=== PATIENT | female | born 1975 | race Caucasian/White ===

== ENCOUNTER 2016-07-11 07:57 | Emergency (ER) | payer OTHER ==
[2016-07-11 08:00] VITALS: BP 135/64
--- NOTE | 2016-07-11 08:55 | RAD ---
INDICATION: Pain at the distal interphalangeal joint of the right middle finger after striking hand against door jam TECHNIQUE: 3 views of the right middle finger were obtained. FINDINGS: The bones are normal alignment. Joint spaces appear maintained. No fracture is seen. IMPRESSION: NO EVIDENCE FOR FRACTURE, IF THE PATIENT'S SYMPTOMS PERSIST RECOMMEND FOLLOW-UP IMAGING.
--- NOTE | 2016-07-11 13:38 | ED ---
Len Rasheed Auryana, scribed for Manan Arteaga MD on 07/11/16 at 0909 . Upper Extremity Pain - HPI Summary HPI Summary: 41 year old females presents with right middle finger pain starting this morning. She reports that as she was walking out of the door and hit the door frame with with finger. She has swelling and pain with movement but denies any other injuries. 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 She is right hand dominant. PMHx of arthritis unsure type. She denies any tobacco or alcohol use. 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, Still Present Timing: Constant Severity Initially: Mild Severity Currently: Mild Pain Location: Hand - right hand middle finger Aggravating Factor(s): Movement Associated Signs & Symptoms: Positive: Swelling Related History: Dominant Hand Right - Allergies/Home Medications Allergies/Adverse Reactions: Allergies Allergy/AdvReac Type Severity Reaction Status Date / Time Iodine Allergy Severe Swelling Verified 06/27/15 13:14 Of Face,Lips,& Throat Shellfish Allergy Allergy Severe Swelling Verified 06/27/15 13:14 Of Face,Lips,& Throat Aspirin Allergy Unknown Verified 06/27/15 13:14 Reaction Details Povidone Iodine Allergy Hives Verified 06/27/15 13:14 [From Betadine] PMH/Surg Hx/FS Hx/Imm Hx Endocrine/Hematology History: Reports: Hx Diabetes, Hx Anemia - HX OF WHEN Cardiovascular History: Reports: Hx Hypercholesterolemia Denies: Hx Myocardial Infarction - Present in EMR PMHx, but pt denies and report negative stress test. Respiratory History: Reports: Hx Chronic Obstructive Pulmonary Disease (COPD), Hx Sleep Apnea GI History: Reports: Hx Gastroesophageal Reflux Disease Musculoskeletal History: Reports: Hx Arthritis - BACK, Hx Back Problems Sensory History: Reports: Hx Cataracts - BILAT, Hx Contacts or Glasses - READING , Other Sensory Impairments - pressure behind right eye Denies: Hx Hearing Aid, Hx Hearing Problem Opthamlomology History: Reports: Hx Cataracts - BILAT, Hx Contacts or Glasses - READING, Other Sensory Impairments - pressure behind right eye Psychiatric History: Reports: Hx Anxiety - NO MEDS, Hx Depression - NO MEDS - Surgical History Surgery Procedure, Year, and Place: [place] [facility] [place] [facility] [place] [place] 07[place] [facility] LEFT EYE SCAR TISSUE REMOVAL 04/22 [facility] REPAIR RIGHT MACULAR HOLE 2012 Hx Anesthesia Reactions: No - Immunization History Date of Tetanus Vaccine: unsure Date of Influenza Vaccine: 2011 Infectious Disease History: No Infectious Disease History: Denies: Traveled Outside the [place] in Last 30 Days - Family History Known Family History: Positive: Diabetes Family History: Renal Failure, CVA, thyroid dz. - Social History Occupation: Unemployed Lives: With Family Alcohol Use: None Substance Use Type: Reports: None Substance Use Comment - Amount & Last Used: percocet Hx Tobacco Use: Yes Smoking Status (MU): Former Smoker Type: Cigarettes Have You Smoked in the Last Year: No Review of Systems Constitutional: Negative Negative: Fever Eyes: Negative ENT: Negative Cardiovascular: Negative Respiratory: Negative Gastrointestinal: Negative Genitourinary: Negative Positive: Myalgia - right hand middle finger pain , Edema - at site of injury Skin: Negative Neurological: Negative Psychological: Normal All Other Systems Reviewed And Are Negative: Yes Physical Exam - Summary Physical Exam Summary: The patient is well-nourished in no acute distress and in mild acute pain. The skin is warm and dry and skin color reflects adequate perfusion. HEENT: The head is normocephalic and atraumatic. The pupils are equal and reactive. The conjunctivae are clear and without drainage. Nares are patent and without drainage. Mouth reveals moist mucous membranes and the throat is without erythema and exudate. The external ears are intact. The ear canals are patent and without drainage. The tympanic membranes are intact. Neck is supple with full range of motion and non-tender. There are no carotid bruits. There is no neck vein distension. Respiratory: Chest is non-tender. Lungs are clear to auscultation and breath sounds are symmetrical and equal. Cardiovascular: Hear is regular rate and rhythm. There is no murmur or rub auscultated. There is no peripheral edema and pulses are symmetrical and equal. Abdomen: The abdomen is soft and non-tender. There are normal bowel sounds heard in all four quadrants and there is no organomegaly palpated. Musculoskeletal: There is good capillary refill. There is no peripheral edema or calf tenderness elicited. Pain and swelling at the DIP joint of the right hand. Good pulses. No skin break. Full ROM-no elbow and no shoulder pain Neurological: Patient is alert and oriented to person, place and time. The patient has symmetrical motor strength in all four extremities. Cranial nerves are grossly intact. Deep tendon reflexes are symmetrical and equal in all four extremities. Psychiatric: The patient has an appropriate affect and does not exhibit any anxiety or depression. Triage Information Reviewed: Yes Vital Signs On Initial Exam: Initial Vitals Temp Pulse Resp BP Pulse Ox 97.6 F 75 16 135/64 100 07/11/16 07:58 07/11/16 07:58 07/11/16 07:58 07/11/16 07:58 07/11/16 07:58 Vital Signs Reviewed: Yes Diagnostics - Vital Signs Vital Signs Temp Pulse Resp BP Pulse Ox 07/11/16 08:00 97.8 F 73 16 135/64 100 07/11/16 07:58 97.6 F 75 16 135/64 100 - Laboratory Lab Statement: Any lab studies that have been ordered have been reviewed, and results considered in the medical decision making process. - Radiology R HAND XR Xray Interpretation: No Acute Changes - IMPRESSION: NO EVIDENCE FOR FRACTURE, IF THE PATIENT'S SYMPTOMS PERSIST RECOMMEND FOLLOW-UP IMAGING. Radiology Interpretation Completed By: Radiologist Course/Dx - Course Assessment/Plan: 41 year old female presents with right middle finger pain s/p hitting finger on door frame while walking. Reports pain with movement and mild swelling. Finger XR- normal without any fractures. Will discharge home with PCP F/U. - Diagnoses Differential Diagnosis/HQI/PQRI: Positive: Contusion, Fracture (Closed) Provider Diagnoses: Contusion of middle finger Discharge - Discharge Plan Condition: Stable Disposition: HOME Patient Education Materials: Contusion in Adults (ED), RICE Therapy (ED) Referrals: Stephanie Umana, THERAPEUTIC STRATEGY LEAD [Primary Care Provider] - 2 Days The documentation as recorded by the Len moser Auryana accurately reflects the service I personally performed and the decisions made by , Manan Arteaga MD.
== END 2016-07-11 09:24 | disposition home or self-care (01) ==
LOC: ED 07:57
DX: S60.031A Contusion of right middle finger without damage to nail, initial encounter (principal); R60.0 Localized edema; Z87.891 Personal history of nicotine dependence; W22.8XXA Striking against or struck by other objects, initial encounter; Y93.9 Activity, unspecified; Y92.9 Unspecified place or not applicable
CPT/HCPCS: 73140; 99281

== ENCOUNTER 2017-03-21 11:46 | Emergency (ER) | payer OTHER ==
[2017-03-21 13:24] LABS: Urine Appearance Clear; Urine Blood Negative (Negative); Urine Color Yellow; Urine Ketones Negative (Negative); Urine Protein Negative (Negative); Urine Specific Gravity 1.019 (1.010-1.030); Urine Urobilinogen Negative (Negative)
[2017-03-21 14:25] VITALS: BP 124/70
--- NOTE | 2017-03-21 22:59 | ED ---
Laura Rasheed Julia, scribed for Yenny Palmer MD on 03/21/17 at 1432 . Abdominal Pain/Female - HPI Summary HPI Summary: This patient is a 41 year old F presenting to [facility] accompanied by her boyfriend with a chief complaint of worsening lower abdominal pain since . The patient rates the pain 7/10 in severity. Symptoms aggravated by nothing. Symptoms alleviated by nothing. Patient reports N/V/D and pressure back pain. Patient denies fever, ear ache, sore, throat, chest pain, SOB. Patient reports she passed two blot clots vaginally. Patients LNMP was in 2009. Patient has IUD. - History of Current Complaint Chief Complaint: EDAbdPain Stated Complaint: ABD PAIN Time Seen by Provider: 03/21/17 12:10 Hx Obtained From: Patient Hx Last Menstrual Period: 7 years ago Onset/Duration: Lasting Days Timing: Constant Pain Intensity: 7 Pain Scale Used: 0-10 Numeric Location: Discrete At: RLQ, Discrete At: LLQ Character: Sharp Aggravating Factor(s): Nothing Alleviating Factor(s): Nothing Associated Signs and Symptoms: Positive: Other: - N/V/D and pressure back pain Allergies/Adverse Reactions: Allergies Allergy/AdvReac Type Severity Reaction Status Date / Time Iodine Allergy Severe Swelling Verified 03/21/17 12:00 Of Face,Lips,& Throat Shellfish Allergy Allergy Severe Swelling Verified 03/21/17 12:00 Of Face,Lips,& Throat Aspirin Allergy Unknown Verified 03/21/17 12:00 Reaction Details Povidone Iodine Allergy Hives Verified 03/21/17 12:00 [From Betadine] PMH/Surg Hx/FS Hx/Imm Hx Endocrine/Hematology History: Reports: Hx Diabetes, Hx Anemia - HX OF WHEN Cardiovascular History: Reports: Hx Hypercholesterolemia Denies: Hx Myocardial Infarction - Present in EMR PMHx, but pt denies and report negative stress test. Respiratory History: Reports: Hx Chronic Obstructive Pulmonary Disease (COPD), Hx Sleep Apnea GI History: Reports: Hx Gastroesophageal Reflux Disease Musculoskeletal History: Reports: Hx Arthritis - BACK, Hx Back Problems Sensory History: Reports: Hx Cataracts - BILAT, Hx Contacts or Glasses - READING , Other Sensory Impairments - pressure behind right eye Denies: Hx Hearing Aid, Hx Hearing Problem Opthamlomology History: Reports: Hx Cataracts - BILAT, Hx Contacts or Glasses - READING, Other Sensory Impairments - pressure behind right eye Psychiatric History: Reports: Hx Anxiety - NO MEDS, Hx Depression - NO MEDS - Surgical History Surgery Procedure, Year, and Place: cholecystectomy 2008 [facility]. appendectomy [facility] y 07/2014 [facility]. LEFT EYE SCAR TISSUE REMOVAL 04/22 [facility]. REPAIR RIGHT MACULAR HOLE 2012 Hx Anesthesia Reactions: No - Immunization History Date of Tetanus Vaccine: unsure Date of Influenza Vaccine: 2011 Infectious Disease History: No Infectious Disease History: Denies: Traveled Outside the [place] in Last 30 Days - Family History Known Family History: Positive: Diabetes Negative: Blood Disorder Family History: Renal Failure, CVA, thyroid dz. - Social History Alcohol Use: None Substance Use Type: Reports: None Substance Use Comment - Amount & Last Used: percocet Hx Tobacco Use: Yes Smoking Status (MU): Former Smoker Type: Cigarettes Have You Smoked in the Last Year: No Review of Systems Negative: Fever Negative: Sore Throat, Ear Ache Negative: Chest Pain Negative: Shortness Of Breath Positive: Abdominal Pain, Vomiting, Diarrhea, Nausea Genitourinary: Other - vaginal bleeding Positive: Other - back pain Negative: Headache All Other Systems Reviewed And Are Negative: No Physical Exam - Summary Physical Exam Summary: Appearance: Alert, conversive, nontoxic appearing Skin: Warm, dry, no mottling, no rashes, no contusions HEENT: EOMI, PERRL, moist mucous membranes Neck: No masses on the neck, supple Respiratory: Clear to auscultation, breath sounds present, no rales, no rhonchi , no wheezes Cardiovascular: RRR, pulses are symmetrical in both lower and upper extremities Abdomen: Soft, diffusely tender, non-surgical abdomen, diffuse Bowel Sounds: Present Musculoskeletal: No CVA tenderness, no obvious deformity, moving all extremities in a grossly normal manner Neurological: A&Ox3, CN II-XII Intact, moving all extremities symmetrically Psychiatric: Normal affect and mood Triage Information Reviewed: Yes Vital Signs On Initial Exam: Initial Vitals Temp Pulse Resp BP Pulse Ox 97.0 F 89 18 123/77 98 03/21/17 11:50 03/21/17 11:50 03/21/17 11:50 03/21/17 11:50 03/21/17 11:50 Vital Signs Reviewed: Yes - Luz Coma Scale Coma Scale Total: 15 Diagnostics - Vital Signs Vital Signs Temp Pulse Resp BP Pulse Ox 03/21/17 13:30 71 115/65 97 03/21/17 13:15 138/78 03/21/17 13:00 80 115/70 97 03/21/17 12:30 82 112/73 98 03/21/17 12:12 86 97 03/21/17 12:09 117/74 03/21/17 11:50 97.0 F 89 18 123/77 98 - Laboratory Lab Results: Lab Results 03/21/17 Range/Units 13:13 Urine Color Yellow Urine Appearance Clear Urine pH 5.0 (5-9) Ur Specific Dahlgren 1.019 (1.010-1.030) Urine Protein Negative (Negative) Urine Ketones Negative (Negative) Urine Blood Negative (Negative) Urine Nitrate Negative (Negative) Urine Bilirubin Negative (Negative) Urine Urobilinogen Negative (Negative) Ur Leukocyte Esterase Negative (Negative) Urine Glucose Negative (Negative) Lab Statement: Any lab studies that have been ordered have been reviewed, and results considered in the medical decision making process. Abdominal Pain Fem Course/Dx - Course Course Of Treatment: Patient's chart was reviewed. Quantitative hCG is less than 0.6. Patient is not . CMP reveals no abnormalities. CBC reveals no abnormalities. Patient presents with chronic abdominal pain. Patient's pain is better today. Patient should follow up with PCP and recieve an out patient CT scan. - Diagnoses Provider Diagnoses: Chronic abdominal pain Discharge - Discharge Plan Condition: Stable Disposition: HOME Patient Education Materials: Chronic Abdominal Pain (ED) Forms: *Work Release Referrals: Stephanie Umana DIRECTOR FUNDRAISING [Primary Care Provider] - Additional Instructions: It is imperative to follow up with your doctor. He or she may want to do an outpatient CT scan of your abd and pelvis. 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 discuss your concerns about your IUD. return if worse or any new symptoms. The documentation as recorded by the Laura moser Julia accurately reflects the service I personally performed and the decisions made by , Yenny Palmer MD.
== END 2017-03-21 14:25 | disposition home or self-care (01) ==
LOC: ED 11:46
DX: R10.30 Lower abdominal pain, unspecified (principal); R11.2 Nausea with vomiting, unspecified; R19.7 Diarrhea, unspecified
CPT/HCPCS: 81003; 99282

== ENCOUNTER 2017-04-07 11:09 | Emergency (ER) | payer OTHER ==
[2017-04-07] MEDS ORDERED: NS 0.9% 1000 ML* 1,000 ML IV ONE (11:10)
[2017-04-07 11:49] LABS: ABS Basophils 0 10^3/ul (0-0.2); ABS Eosinophils 0.1 10^3/ul (0-0.6); ABS Lymphocytes 1.7 10^3/ul (1.0-4.8); ABS Monocytes 0.6 10^3/ul (0-0.8); ABS Neutrophils 3.2 10^3/ul (1.5-7.7); ABS Nucleated RBC 0 10^3/ul; Eosinophil % 1.5 % (0-6); Hematocrit 39 % (35-47); Hemoglobin 13.6 g/dl (12.0-16.0); Lymphocyte % 29.5 % (25-47); Mean Corpuscular HGB Conc 35 g/dl (31-36); Mean Corpuscular Hemoglobin 30 pg (27-31); Mean Corpuscular Volume 85 fL (80-97); Mean Platelet Volume 9 um3 (7.4-10.4); Nucleated Red Blood Cells % 0.1; Platelet Count 177 10^3/ul (150-450); Red Blood Count 4.63 10^6/ul (4.0-5.4); Red Cell Distribution Width 14 % (10.5-15); White Blood Count 5.7 10^3/ul (3.5-10.8)
[2017-04-07 12:03] LABS: Urine Appearance Clear; Urine Blood 1+ (Negative); Urine Color Straw; Urine Ketones Negative (Negative); Urine Protein Negative (Negative); Urine Specific Gravity 1.002 (1.010-1.030); Urine Urobilinogen Negative (Negative)
[2017-04-07 12:13] LABS: EGFR Non-African American 84.3 (>60)
[2017-04-07 15:13] VITALS: BP 110/74
--- NOTE | 2017-04-08 18:35 | ED ---
Mathew Rasheed Angela, scribed for Madhu Diana MD on 04/07/17 at 1117 . Syncope/Near Syncope - HPI Summary HPI Summary: This pt is a 41 y/o female presenting to [facility] via EMS for a syncopal episode today. EMS reports the pt has not been feeling well for the past few mornings with nausea and vomiting. Pt thought she was and took a home test, which was inconclusive. Pt states that today while she was in the shower she had a syncopal episode. She is unsure if she had LOC. She notes "things got bright and I fell." Pt remembers "waking up" against the shower wall. Pt reports she hit the back of her head against the shower wall but she remained standing. Currently c/o headache. She denies chest pain, SOB. LMP: pt spotted for 24 hours last week. PMHx: diabetes. - History Of Current Complaint Hx Obtained From: Patient Onset/Duration: Sudden Onset, Resolved Timing: Constant Context: Unwitnessed Activity At Onset: Other - taking a shower Associated Head Trauma: Yes Aggravating Factor(s): Nothing Alleviating Factor(s): Nothing Associated Signs And Symptoms: Headache, Other - NEG: chest pain or SOB. - Allergies/Home Medications Allergies/Adverse Reactions: Allergies Allergy/AdvReac Type Severity Reaction Status Date / Time MS Iodine [Iodine] Allergy Severe Swelling Verified 04/07/17 12:18 Of Face,Lips,& Throat MS Shellfish Allergy Allergy Severe Swelling Verified 04/07/17 12:18 [Shellfish Allergy] Of Face,Lips,& Throat MS Aspirin [Aspirin] Allergy Unknown Verified 04/07/17 12:18 Reaction Details MS Povidone Iodine Allergy Hives Verified 04/07/17 12:18 [From Betadine] PMH/Surg Hx/FS Hx/Imm Hx Endocrine/Hematology History: Reports: Hx Diabetes, Hx Anemia - HX OF WHEN Cardiovascular History: Reports: Hx Hypercholesterolemia Denies: Hx Myocardial Infarction - Present in EMR PMHx, but pt denies and report negative stress test. Respiratory History: Reports: Hx Chronic Obstructive Pulmonary Disease (COPD), Hx Sleep Apnea GI History: Reports: Hx Gastroesophageal Reflux Disease Musculoskeletal History: Reports: Hx Arthritis - BACK, Hx Back Problems Sensory History: Reports: Hx Cataracts - BILAT, Hx Contacts or Glasses - READING , Other Sensory Impairments - pressure behind right eye Denies: Hx Hearing Aid, Hx Hearing Problem Opthamlomology History: Reports: Hx Cataracts - BILAT, Hx Contacts or Glasses - READING, Other Sensory Impairments - pressure behind right eye Psychiatric History: Reports: Hx Anxiety - NO MEDS, Hx Depression - NO MEDS - Surgical History Surgery Procedure, Year, and Place: cholecystectomy 2008 [facility] [place]. appendectomy [facility] y 07/2014 [facility]. LEFT EYE SCAR TISSUE REMOVAL 04/22 [facility]. REPAIR RIGHT MACULAR HOLE 2012 Hx Anesthesia Reactions: No - Immunization History Date of Tetanus Vaccine: unsure Date of Influenza Vaccine: 2011 - Family History Known Family History: Positive: Diabetes Negative: Blood Disorder Family History: Renal Failure, CVA, thyroid dz. - Social History Alcohol Use: None Substance Use Type: Reports: None Substance Use Comment - Amount & Last Used: percocet Hx Tobacco Use: Yes Smoking Status (MU): Former Smoker Type: Cigarettes Have You Smoked in the Last Year: No Review of Systems Negative: Fever, Chills Negative: Chest Pain Negative: Shortness Of Breath Positive: Vomiting, Nausea Positive: Headache, Syncope All Other Systems Reviewed And Are Negative: Yes Physical Exam - Summary Physical Exam Summary: VITAL SIGNS: Reviewed. GENERAL: Patient is a well-developed and nourished female who is lying comfortable in the stretcher. Patient is not in any acute respiratory distress. HEAD AND FACE: No signs of trauma. No ecchymosis, hematomas or skull depressions. No sinus tenderness. EYES: PERRLA, EOMI x 2, No injected conjunctiva, no nystagmus. EARS: Hearing grossly intact. Ear canals and tympanic membranes are within normal limits. MOUTH: Oropharynx within normal limits. NECK: Supple, trachea is midline, no adenopathy, no JVD, no carotid bruit, no c- spine tenderness, neck with full ROM. CHEST: Symmetric, no tenderness at palpation LUNGS: Clear to auscultation bilaterally. No wheezing or crackles. CVS: Regular rate and rhythm, S1 and S2 present, no murmurs or gallops appreciated. ABDOMEN: Soft, non-tender. No signs of distention. No rebound no guarding, and no masses palpated. Bowel sounds are normal. EXTREMITIES: FROM in all major joints, no edema, no cyanosis or clubbing. NEURO: Alert and oriented x 3. No acute neurological deficits. Speech is normal and follows commands. SKIN: Dry and warm Triage Information Reviewed: Yes Vital Signs Reviewed: Yes Diagnostics - Laboratory Result Diagrams: 04/07/17 11:36 04/07/17 12:55 Lab Statement: Any lab studies that have been ordered have been reviewed, and results considered in the medical decision making process. - EKG 11:16 Cardiac Rate: NL EKG Rhythm: Sinus Rhythm - at 84 bpm EKG Interpretation: No ST elevation. Normal axis. Re-Evaluation - Re-Evaluation First Eval Re-Evaluation Time: 14:12 Comment: I reviewed test results with the pt. Course/Dx Course Of Treatment: This pt is a 41 y/o female presenting to [facility] via EMS for a syncopal episode today. EMS reports the pt has not been feeling well for the past few mornings with nausea and vomiting. Pt thought she was and took a home test, which was inconclusive. Pt states that today while she was in the shower she had a syncopal episode. She is unsure if she had LOC. She notes "things got bright and I fell." Pt reports she hit the back of her head against the shower wall but she remained standing. Currently c/o headache. She denies chest pain, SOB. LMP: pt spotted for 24 hours last week. Test results without any significant abnormalities. Urinalysis is negative for UTI. In the ED course the pt has been stable. The pt has slight hyperglycemia which was corrected with IV fluids. At this point she is asymptomatic, ambulating, with a normal neurological exam. I did not perform a CT of the head because she is neurologically intact. Therefore she will be discharged with follow up from PCP. She was recommended to return if symptoms return or worsen. She understands and agrees. Pt is hemodynamically stable, alert and oriented x3. - Diagnoses Provider Diagnoses: Dizziness, Hyperglycemia Discharge - Discharge Plan Condition: Stable Disposition: HOME Patient Education Materials: Dizziness (ED), Diabetic Hyperglycemia (ED) Referrals: Stephanie Umana [employer]ER [Primary Care Provider] - 3 Days Additional Instructions: Please follow up with your primary care provider. RETURN TO THE ED FOR ANY WORSENING SYMPTOMS. The documentation as recorded by the Mathew moser Angela accurately reflects the service I personally performed and the decisions made by me, Madhu Diana MD.
== END 2017-04-07 14:36 | disposition home or self-care (01) ==
LOC: ED 11:09
DX: R42 Dizziness and giddiness (principal); E11.65 Type 2 diabetes mellitus with hyperglycemia; Z87.891 Personal history of nicotine dependence; Z88.8 Allergy status to other drugs, medicaments and biological substances; Z88.6 Allergy status to analgesic agent
CPT/HCPCS: 36415; 80053; 81003; 81015; 83690; 84702; 85025; 86140; 93005; 96360; 96361; 99283

== ENCOUNTER 2017-05-16 12:04 | Emergency (ER) | payer OTHER ==
--- NOTE | 2017-05-16 12:49 | ED ---
GI/ HPI - HPI Summary HPI Summary: Patient here with abnormal vaginal bleeding 2 months. She reports she had her Mirena IUD removed at the very beginning of March 2017 after having it in for 2 years. This was placed by Dr. Suarez and removed by Stephanie Umana as pt reports she had pain since it was placed. Pain has resolved since removal. Dong placed pt on OBC's after removal of IUD which she was taking routinely. She only had spotting for 24 hours at the end of Mar (not a regular period) and so was suspected so she stopped taking her OBC's. A serum HCG was performed here at ED on 04/07/2017 and was neg. 2 weeks later (about Apr 25) she develop spotting for another 24 hours only. Yesterday, developed spotting again however today reports heavier vaginal bleeding - going through a pad an hour - since 9:00 this morning. Associated symptoms include mild lower back soreness/cramping. Denies fevers, chills, nausea, vomiting, dysuria, urinary frequency, vaginal pain or irritation and no vaginal trauma. She has been sexually active since IUD was removed and is concerned she could be miscarrying as she has had this in the past. She is (3 live births, 1 still which was a twin - the other survived - and 1 miscarriage). 1 and the remaining were vaginal deliveries. 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 Denies any other areas of bruising or bleeding. Admits she and partner were trying to get . She reports she's gotten in the past despite taking control (OBC's and Depoprovera) and using condoms. She is not interested in tubal ligation at this time. Furthermore, she reports her h/o mentrual cycles has been irregular since she started at 10 y.o. - they do not come at regular times and the first day is heavy for 24 hours then tapers down. NOTE: She also had a TVUS on 04/29/2017 ordered by PCP which reveals "1. Normal and age appropriate appearing uterus and ovaries to dilated. 2. Uterine veins measuring up to 7 mm in diameter are visualized which could be seen in the setting of pelvic congestion syndrome." Pt has f/u to discuss results for Thursday of this coming week. - History of Current Complaint Chief Complaint: EDVaginalBleeding Time Seen by Provider: 05/16/17 12:19 Stated Complaint: OB PROBLEM Hx Obtained From: Patient, Family/Pc Analyst - male partner Hx Last Menstrual Period: 7 years ago Pain Intensity: 0 - Allergy/Home Medications Allergies/Adverse Reactions: Allergies Allergy/AdvReac Type Severity Reaction Status Date / Time aspirin Allergy Severe See Comment Verified 05/16/17 12:29 Iodinated Contrast- Oral and Allergy Severe Swelling Verified 05/16/17 12:29 IV Dye Of Face,Lips,& Throat povidone-iodine Allergy Severe Swelling Verified 05/16/17 12:29 [From Betadine] Of Face,Lips,& Throat shellfish derived Allergy Severe Swelling Verified 05/16/17 12:29 Of Face,Lips,& Throat soap [From Betadine] Allergy Severe Swelling Verified 05/16/17 12:29 Of Face,Lips,& Throat PMH/Surg Hx/FS Hx/Imm Hx Previously Healthy: Yes Endocrine/Hematology History: Reports: Hx Diabetes, Hx Anemia - HX OF WHEN , Other Endocrine/Hematological Disorders - obesity - s/p gastric bypass surgery Cardiovascular History: Reports: Hx Hypercholesterolemia - statin Denies: Hx Myocardial Infarction - Present in EMR PMHx, but pt denies and report negative stress test. Respiratory History: Reports: Hx Chronic Obstructive Pulmonary Disease (COPD), Hx Sleep Apnea GI History: Reports: Hx Gastroesophageal Reflux Disease Musculoskeletal History: Reports: Hx Arthritis - BACK, Hx Back Problems Sensory History: Reports: Hx Cataracts - BILAT, Hx Contacts or Glasses - READING , Other Sensory Impairments - pressure behind right eye Denies: Hx Hearing Aid, Hx Hearing Problem Opthamlomology History: Reports: Hx Cataracts - BILAT, Hx Contacts or Glasses - READING, Other Sensory Impairments - pressure behind right eye Psychiatric History: Reports: Hx Anxiety - NO MEDS, Hx Depression - NO MEDS - Surgical History Surgery Procedure, Year, and Place: cholecystectomy 2008 [facility] [place]. appendectomy [facility] [place] [place] 07/2014 [facility] LEFT EYE SCAR TISSUE REMOVAL 04/22 [facility] REPAIR RIGHT MACULAR HOLE 2012 Hx Anesthesia Reactions: No - Immunization History Date of Tetanus Vaccine: unsure Date of Influenza Vaccine: 2011 Infectious Disease History: No Infectious Disease History: Denies: Traveled Outside the [place] in Last 30 Days - Family History Known Family History: Positive: Diabetes Negative: Blood Disorder Family History: Renal Failure, CVA, thyroid dz. - Social History Lives: With Family Alcohol Use: None Hx Substance Use: No Substance Use Type: Reports: None Substance Use Comment - Amount & Last Used: percocet 5/325 Hx Tobacco Use: Yes Smoking Status (MU): Former Smoker Type: Cigarettes Have You Smoked in the Last Year: No Review of Systems Constitutional: Negative Negative: Fever, Chills, Fatigue Cardiovascular: Negative Negative: Palpitations, Chest Pain Respiratory: Negative Negative: Shortness Of Breath, Cough Gastrointestinal: Negative Positive: Diarrhea - pt admits she takes colace so this isn't abnormal. Negative: Abdominal Pain, Vomiting, Nausea Positive: see HPI Musculoskeletal: Negative Skin: Negative Neurological: Negative Negative: Headache Psychological: Normal - concerned but calm All Other Systems Reviewed And Are Negative: Yes Physical Exam Triage Information Reviewed: Yes Vital Signs On Initial Exam: Initial Vitals Temp Pulse Resp BP Pulse Ox 97.2 F 73 14 146/74 98 05/16/17 12:16 05/16/17 12:16 05/16/17 12:16 05/16/17 12:16 05/16/17 12:16 Vital Signs Reviewed: Yes Appearance: Positive: Well-Appearing, No Pain Distress, Obese Skin: Positive: Warm, Skin Color Reflects Adequate Perfusion, Dry - no ecchymosis Head/Face: Positive: Normal Head/Face Inspection Eyes: Positive: Normal, EOMI, Conjunctiva Clear - anicteric sclera ENT: Positive: Normal ENT inspection, Hearing grossly normal, Pharynx normal - oral mucosa moist Respiratory/Lung Sounds: Positive: Clear to Auscultation, Breath Sounds Present Cardiovascular: Positive: Normal, RRR, S1, S2 Abdomen Description: Positive: Nontender, No Organomegaly, Soft Bowel Sounds: Positive: Present Pelvic Exam: Positive: external exam normal - blood present, active bleeding - appears to be coming form os - bloody mucous d/c - cervix is clear w/o lesions, non-friable, other - thorough speculum exam is difficult given pt's body habitus - cervix inspected however vaginal hanson are more difficult to inspect with great detail. Negative: cervicitis, tender w/ cervical motion Musculoskeletal: Positive: Normal, Strength/ROM Intact Neurological: Positive: Normal, Sensory/Motor Intact, Alert, Oriented to Person Place, Time, CN Intact II-III Psychiatric: Positive: Normal - concerned but calm and cooperative Diagnostics - Vital Signs Vital Signs Temp Pulse Resp BP Pulse Ox 05/16/17 12:16 97.2 F 73 14 146/74 98 - Laboratory Result Diagrams: 05/16/17 13:08 05/16/17 13:08 Lab Statement: Any lab studies that have been ordered have been reviewed, and results considered in the medical decision making process. GIGU Course/Dx - Course Course Of Treatment: Pt presents w/ abnormal vaginal bleeding. Suspect first menstrual cycle since removal of IUD. Discussed w/ Dr. Toledo (POULTRY OFFAL WORKER) who agrees and advises either restarting OBC's to better control menstrual cycle or may continue w/ natural course. No additional tests or tx necessary today. Reviewed options w/ pt and partner as well as danger s/sx of when to return to ED. Otherwise, will f/u w/ PCP Thursday as scheduled for TVUS results. - Diagnoses Provider Diagnoses: Abnormal uterine bleeding Discharge - Discharge Plan Condition: Stable Disposition: HOME Patient Education Materials: Dysfunctional Uterine Bleeding (ED) Referrals: Stephanie Umana, CUB REPORTER [Primary Care Provider] - Additional Instructions: It is suspected the cause of your vaginal bleeding is due to your first natural menstrual cycle since removal of your IUD. You may opt to let "nature take its course" and taken no action or you may restart your oral control pills and continue as initially directed by your primary care provider. Keep follow- up with PCP on Thursday to review transvaginal ultrasound results - as discussed today, these results do NOT indicate a pathologic cause for heavy vaginal bleeding (ie. fibroid, etc). *If you develop continued heavy vaginal bleeding (saturating a pad or tampon every hour on the hour for greater than 24 hours) and/or experience lightheadedness, dizziness, chest pain, shortness of breath, syncope, return to the emergency department
[2017-05-16 13:17] LABS: ABS Basophils 0 10^3/ul (0-0.2); ABS Eosinophils 0.1 10^3/ul (0-0.6); ABS Lymphocytes 2.2 10^3/ul (1.0-4.8); ABS Monocytes 0.4 10^3/ul (0-0.8); ABS Neutrophils 2.4 10^3/ul (1.5-7.7); ABS Nucleated RBC 0 10^3/ul; Eosinophil % 1.5 % (0-6); Hematocrit 40 % (35-47); Hemoglobin 13.5 g/dl (12.0-16.0); Lymphocyte % 42.3 % (25-47); Mean Corpuscular HGB Conc 34 g/dl (31-36); Mean Corpuscular Hemoglobin 29 pg (27-31); Mean Corpuscular Volume 85 fL (80-97); Mean Platelet Volume 9 um3 (7.4-10.4); Nucleated Red Blood Cells % 0.1; Platelet Count 206 10^3/ul (150-450); Red Blood Count 4.63 10^6/ul (4.0-5.4); Red Cell Distribution Width 13 % (10.5-15); White Blood Count 5.2 10^3/ul (3.5-10.8)
[2017-05-16 13:25] LABS: Urine Appearance Clear; Urine Blood 3+ (Negative); Urine Color Yellow; Urine Ketones Negative (Negative); Urine Protein Negative (Negative); Urine Specific Gravity 1.005 (1.010-1.030); Urine Urobilinogen Negative (Negative)
[2017-05-16 13:29] LABS: INR 0.92 (0.77-1.02)
[2017-05-16 13:33] LABS: EGFR Non-African American 104.7 (>60)
[2017-05-16 15:12] VITALS: BP 121/79
== END 2017-05-16 15:11 | disposition home or self-care (01) ==
LOC: ED 12:04
DX: N93.8 Other specified abnormal uterine and vaginal bleeding (principal); E11.9 Type 2 diabetes mellitus without complications; Z79.4 Long term (current) use of insulin; Z98.84 Bariatric surgery status; E78.00 Pure hypercholesterolemia, unspecified; J44.9 Chronic obstructive pulmonary disease, unspecified; Z87.891 Personal history of nicotine dependence; Z32.02 Encounter for pregnancy test, result negative; M54.5 Low back pain
CPT/HCPCS: 36415; 80053; 81003; 81015; 84702; 85025; 85610; 85730; 86850; 86900; 86901; 99282

== ENCOUNTER 2017-06-18 19:00 | Emergency (ER) | payer OTHER ==
--- OUTSIDE RECORDS SUMMARY | 2017-06-18 19:18 | XMS REPORT ---
:1975 External Reference #:[id number] Author Organization [facility] Address [address] [address] Phone [phone] Care Team Providers Name Role Phone Stephanie Umana NP Care Team Information Advertising Sales Representative Unavailable Stephanie Umana NP Primary Care Physician Unavailable Payers Type Date Identification Numbers Payment Provider Subscriber Commercial Policy Number: [id number] [employer] Angi Mares PayID: [id number] [address] [address] [place] [address] Problems Date Description Provider Status Onset: 06/28/2015 Morbid obesity Thuy Fuentes MD Active Onset: 06/28/2015 Obstructive sleep apnea syndrome Thuy Fuentes MD Active Family History Date Family Member(s) Problem(s) Comments General Both sides DM,heart disease,strokes,mental issues,Etoh/drug addiction General Epilepsy General Diabetes General Seizure Disorder Father Hypertension Father Cholesterol Cholesterol Mother Mother Diabetes Mother Heart Disease Social History Type Date Description Comments Lives With Family Occupation Not working ETOH Use Denies alcohol use recovering alcoholic Smoking Patient is a former smoker Quit over 15 years ago Recreational Drug Use Denies Drug Use Exercise Type/Frequency Exercises regularly Walks every day or stationery bike Allergies, Adverse Reactions, Alerts Date Description Reaction Status Severity Comments 12/24/2012 Iodine active 12/24/2012 Shellfish-derived Products active 06/28/2015 Betadine active Medications Medication Date Status Form Strength Qnty SIG Indications Ordering Provider Gabapentin 03/10/ Active Capsules 300mg 90cap 1 in the Unknown 2017 s a.m. and 2 at night Furosemide 00/00/ Active Tablets 20mg 30tab 1 po qam Unknown 0000 s prn Simvastatin 00/00/ Active Tablets 20mg 90tab 1 po qd Unknown 0000 s Omeprazole 0000/ Active Capsules DR 20mg 30cap 1 po qd Unknown 0000 s Ibuprofen 00/00/ Active Tablets 600mg 60tab 1 po tid Unknown 0000 s prn Ranitidine HCL 0000/ Active Tablets 150mg 60tab take one Unknown 0000 s tablet by mouth twice a day Humalog Mix 00/ Active Suspension (50-50)10 Based Off Unknown 50/50 0000 0Unit/ML Of Sliding Scale Lantus Solostar / Active Solution 100Unit/M Once A Day Unknown 0000 Pen-Inject L 35 Units Oxycodone/Aceta / Hx Tablets 5-325mg 60tab 1-2 tabs po Unknown minophen 0000 - s q 4 hrs prn pain 2018 Ventolin HFA / Hx Aerosol 108(90Bas 1unit 2 puffs po Unknown 0000 - e) s qid prn 05/25/ mcg/Act 2018 Travatan Z 00/ Hx Solution 0.004% 5ml 1 gtt right Unknown 0000 - eye 2017 Azopt / Hx Suspension 1% 1 gtt tid Unknown 0000 - 2017 Betaxolol HCL / Hx Solution 0.5% 1 gtt both Unknown 0000 - eyes every morning 2018 Alphagan P 00/ Hx Solution 0.1% Unknown 0000 - 2017 Spiriva 00/00/ Hx Capsules 18mcg 30cap 1 Unknown Handihaler 0000 - s inhalation po qam 2018 Flexeril 00/00/ Hx Tablets 5mg 30tab 1 tablet Unknown 0000 - s three times 05/25/ a day as 2018 needed Celexa 00// Hx Tablets 20mg 30tab 1 po qd Unknown 0000 - s 2017 Metformin HCL 00/ Hx Tablets 1000mg 180ta 1 po bid Unknown 0000 - bs 2017 Cosopt 00/00/ Hx Solution 22.3-6.8m 1 gtt right Unknown 0000 - g/ml eye bid 2017 Novolog 00/00/ Hx Solution 100Unit/M 1bott 30 units am Unknown 0000 - L le 34 units with dinner 2017 Humulin R U-500 00/ Hx Solution 500Unit/M 20uni 40 units Unknown (Concentrated) 0000 - L ts bid 2017 Acetazolamide 00/ Hx Tablets 250mg 90tab 1/2 po qid Unknown 0000 - s 2017 Vital Signs Date Vital Result Comment 05/26/2017 Height 65 inches 5'5" Weight 233.25 lb Heart Rate 76 /min BP Systolic Sitting 132 mmHg BP Diastolic Sitting 72 mmHg Respiratory Rate 16 /min BMI (Body Mass Index) 38.8 kg/m2 03/11/2016 Height 65 inches 5'5" Weight 257.00 lb Heart Rate 83 /min BP Systolic Sitting 132 mmHg BP Diastolic Sitting 76 mmHg Respiratory Rate 16 /min O2 % BldC Oximetry 97 % BMI (Body Mass Index) 42.8 kg/m2 09/07/2015 Height 66 inches 5'6" Weight 256.00 lb Heart Rate 64 /min BP Systolic Sitting 126 mmHg BP Diastolic Sitting 74 mmHg Respiratory Rate 18 /min O2 % BldC Oximetry 98 % BMI (Body Mass Index) 41.3 kg/m2 06/28/2015 Height 65 inches 5'5" Weight 263.00 lb Heart Rate 70 /min BP Systolic Sitting 122 mmHg BP Diastolic Sitting 70 mmHg Respiratory Rate 16 /min O2 % BldC Oximetry 98 % BMI (Body Mass Index) 43.8 kg/m2 Neck Circumference in inches 16.25 Results Test Date Test Result H/L Range Note Urine Culture & 12/06/2010 Urine Culture Sensitivi NF1 1 Sensitivi 1 SPECIMEN CONTAINS NORMAL URETHRAL OR PERINEAL KATHRYN AND DOES NOT SUGGEST URINARY TRACT INFECTION Procedures Date CPT Code Description Status 08/14/2015 69378 Polysomnography Sleep Staging 4+ Parameters W/Cpap Completed 12/04/2009 08990 Treadmill Interp/Report Only Completed 12/04/2009 18590 Stress Test Supervsn W/Out I/R Completed 07/19/2009 27008 EKG Tracing & Interpretation Completed 09/21/2007 57496 Color Flow Doppler/Interp & Reprt Completed 09/21/2007 20985 Pulse Wave/Continuous-Interp.RPT Completed 09/21/2007 52137 Pulse Wave/Continuous-Interp.RPT Completed 09/21/2007 51701 Echocardiogram Completed 09/21/2007 34603 Treadmill Interp/Report Only Completed 09/21/2007 50216 Treadmill Interp/Report Only Completed 09/21/2007 03433 Stress Test Supervsn W/Out I/R Completed 09/21/2007 53416 Stress Test Supervsn W/Out I/R Completed Encounters Type Date Location Provider CPT E/M Dx Office Visit 03/11/2016 [place] [address] G47.33 9:30a [facility] Office Visit 09/07/2015 [place] [address] G47.33 10:45a [facility] Office Visit 06/28/2015 [place] [address] G47.33 10:15a [facility] E66.01 Office Visit 07/19/2009 8:30a [facility] Ashlyn Portillo, [address] [phone] MVirgie 272.4 Plan of Care Future Appointment(s):07/14/2017 9:30 am - Louis Craft M.D. at [facility]05/26/2017 - Louis Craft M.D.M54.2 CervicalgiaNew Therapy:Physical BerconyD33.81 Postconcussional zuiwjcamJ11.3 Other amnesiaNew Xrays:MRI Brain W/OFollow up:after MRIZ33.1 state, incidentalNew Labs:HCG LjscifnroW57.3521 Diab with prolif diab rtnop with trctn dtch macula, r eyeRecommendations:see Dr Olivarez for an eye exam
[2017-06-18 21:51] LABS: Urine Appearance Cloudy; Urine Blood Negative (Negative); Urine Color Yellow; Urine Ketones Trace (Negative); Urine Protein Negative (Negative); Urine Specific Gravity 1.028 (1.010-1.030); Urine Urobilinogen Negative (Negative)
[2017-06-18 22:04] LABS: ABS Basophils 0 10^3/ul (0-0.2); ABS Eosinophils 0.1 10^3/ul (0-0.6); ABS Lymphocytes 2.7 10^3/ul (1.0-4.8); ABS Monocytes 0.5 10^3/ul (0-0.8); ABS Neutrophils 4.2 10^3/ul (1.5-7.7); ABS Nucleated RBC 0 10^3/ul; Eosinophil % 1.2 % (0-6); Hematocrit 39 % (35-47); Hemoglobin 13.5 g/dl (12.0-16.0); Lymphocyte % 35.6 % (25-47); Mean Corpuscular HGB Conc 34 g/dl (31-36); Mean Corpuscular Hemoglobin 29 pg (27-31); Mean Corpuscular Volume 86 fL (80-97); Mean Platelet Volume 8.9 um3 (7.4-10.4); Nucleated Red Blood Cells % 0; Platelet Count 221 10^3/ul (150-450); Red Blood Count 4.59 10^6/ul (4.0-5.4); Red Cell Distribution Width 13 % (10.5-15); White Blood Count 7.5 10^3/ul (3.5-10.8)
[2017-06-18 22:18] LABS: EGFR Non-African American 85.6 (>60)
[2017-06-18] MEDS ORDERED: RHO D Immune Globulin (HUMAN)* 300 MCG = 1,500 I.U. INJ IM SCH (23:00)
[2017-06-18 23:51] VITALS: BP 124/71
--- NOTE | 2017-06-18 23:54 | ED ---
- HPI Summary HPI Summary: Pt. is a 41 y.o female who presents to the ER for vaginal bleeding, pelvic cramping in early . Last menstrual cycle was around May 16. Pt. has not had a confirmed IUP. [id number]. No current modifying factors. Pt. describes bleeding as light without clots. - History of Current Complaint Chief Complaint: EDAbdPain Stated Complaint: ABD PAIN/VAGINAL BLEEDING/2 MONTHS PREG Time Seen by Provider: 06/18/17 20:59 Hx Obtained From: Patient Onset/Duration: Started Hours Ago Timing: Constant Severity: Mild Current Severity: Mild Pain Intensity: 5 Location of Pain: Suprapubic Character: Cramping Associated Signs and Symptoms: Positive: Vaginal Bleeding or Discharge. Negative: Back Pain, Urinary Symptoms, Vomiting - Assessment Hx Now: Yes Vaginal Bleeding Amount: Scant - Allergies/Home Medications Allergies/Adverse Reactions: Allergies Allergy/AdvReac Type Severity Reaction Status Date / Time aspirin Allergy Severe See Comment Verified 05/16/17 12:29 Iodinated Contrast- Oral and Allergy Severe Swelling Verified 05/16/17 12:29 IV Dye Of Face,Lips,& Throat povidone-iodine Allergy Severe Swelling Verified 05/16/17 12:29 [From Betadine] Of Face,Lips,& Throat shellfish derived Allergy Severe Swelling Verified 05/16/17 12:29 Of Face,Lips,& Throat soap [From Betadine] Allergy Severe Swelling Verified 05/16/17 12:29 Of Face,Lips,& Throat Home Medications: Home Medications Docusate CAP* [Colace Cap*] 100 mg PO BID 06/18/17 [History Confirmed 06/18/17] Furosemide TAB* [Lasix TAB*] 20 mg PO DAILY 06/18/17 [History Confirmed 06/18/17 ] Insulin Glargine,Hum.rec.anlog [Basaglar Kwikpen] 35 unit SUBCUT QAM 06/18/17 [ History Confirmed 06/18/17] Insulin LISPRO* [HumaLOG*] 0 units SUBCUT DIRECTED 06/18/17 [History Confirmed 06/18/17] Omeprazole CAP* [Prilosec CAP* 20 MG] 20 mg PO DAILY 06/18/17 [History Confirmed 06/18/17] Pnv No.95/Ferrous Fum/Folic AC [ Vitamin & Minera 28-0.8 mg] 1 tab PO DAILY 06/18/17 [History Confirmed 06/18/17] Ranitidine TAB (NF) [Zantac TAB (NF)] 150 mg PO BID 06/18/17 [History Confirmed 06/18/17] Sertraline* [Zoloft*] 25 mg PO DAILY 06/18/17 [History Confirmed 06/18/17] PMH/Surg Hx/FS Hx/Imm Hx Previously Healthy: Yes Endocrine/Hematology History: Reports: Hx Diabetes, Hx Anemia - HX OF WHEN , Other Endocrine/Hematological Disorders - obesity - s/p gastric bypass surgery Cardiovascular History: Reports: Hx Hypercholesterolemia - statin Denies: Hx Myocardial Infarction - Present in EMR PMHx, but pt denies and report negative stress test. Respiratory History: Reports: Hx Chronic Obstructive Pulmonary Disease (COPD), Hx Sleep Apnea GI History: Reports: Hx Gastroesophageal Reflux Disease Musculoskeletal History: Reports: Hx Arthritis - BACK, Hx Back Problems Sensory History: Reports: Hx Cataracts - BILAT, Hx Contacts or Glasses - READING , Other Sensory Impairments - pressure behind right eye Denies: Hx Hearing Aid, Hx Hearing Problem Opthamlomology History: Reports: Hx Cataracts - BILAT, Hx Contacts or Glasses - READING, Other Sensory Impairments - pressure behind right eye Psychiatric History: Reports: Hx Anxiety - NO MEDS, Hx Depression - NO MEDS - Surgical History Surgery Procedure, Year, and Place: cholecystectomy 2008 [facility] [place]. appendectomy [facility] [place] en y 07/2014 [facility] LEFT EYE SCAR TISSUE REMOVAL 04/22 [facility] REPAIR RIGHT MACULAR HOLE 2012 Hx Anesthesia Reactions: No - Immunization History Date of Tetanus Vaccine: unsure Date of Influenza Vaccine: 2011 Infectious Disease History: No Infectious Disease History: Denies: Traveled Outside the [place] in Last 30 Days - Family History Known Family History: Positive: Diabetes Negative: Blood Disorder Family History: Renal Failure, CVA, thyroid dz. - Social History Occupation: Employed Full-time Lives: With Family Alcohol Use: None Hx Substance Use: No Substance Use Type: Reports: None Substance Use Comment - Amount & Last Used: percocet Hx Tobacco Use: Yes Smoking Status (MU): Former Smoker Type: Cigarettes Have You Smoked in the Last Year: No Review of Systems Constitutional: Negative Negative: Fever, Chills ENT: Negative Cardiovascular: Negative Respiratory: Negative Positive: Abdominal Pain Positive: other - Vaginal bleeding. Negative: burning, dysuria, discharge, flank pain All Other Systems Reviewed And Are Negative: Yes Physical Exam - Physical Exam Triage Information Reviewed: Yes Vital Signs Reviewed: Yes Skin: Positive: Warm, Dry Head/Face: Positive: Normal Head/Face Inspection Eyes: Positive: Normal Respiratory/Lung Sounds: Positive: Clear to Auscultation, Breath Sounds Present Cardiovascular: Positive: Normal, RRR Abdomen Description: Positive: Soft, Other: - Abd. is soft with minimal tenderness to the lower quandrants. No rebound tenderness or guading. Neurological: Positive: Normal, CN Intact II-III Psychiatric: Positive: Normal Diagnostics - Vital Signs Vital Signs Temp Pulse Resp BP Pulse Ox 06/18/17 19:02 97.1 F 89 22 127/77 97 - Laboratory Lab Results: Lab Results 06/18/17 06/18/17 06/18/17 Range/Units 21:24 21:45 21:45 WBC (3.5-10.8) 10^3/ul RBC (4.0-5.4) 10^6/ul Hgb (12.0-16.0) g/dl Hct (35-47) % MCV (80-97) fL MCH (27-31) pg MCHC (31-36) g/dl RDW (10.5-15) % Plt Count (150-450) 10^3/ul MPV (7.4-10.4) um3 Neut % (Auto) (38-83) % Lymph % (Auto) (25-47) % [place] % (Auto) (0-7) % Eos % (Auto) (0-6) % Baso % (Auto) (0-2) % Absolute Neuts (auto) (1.5-7.7) 10^3/ul Absolute Lymphs (auto) (1.0-4.8) 10^3/ul Absolute Monos (auto) (0-0.8) 10^3/ul Absolute Eos (auto) (0-0.6) 10^3/ul Absolute Basos (auto) (0-0.2) 10^3/ul Absolute Nucleated RBC 10^3/ul Nucleated RBC % Sodium 137 L (139-145) mmol/L Potassium 3.7 (3.5-5.0) mmol/L Chloride 102 (101-111) mmol/L Carbon Dioxide 30 (22-32) mmol/L Anion Gap 5 (2-11) mmol/L BUN 12 (6-24) mg/dL Creatinine 0.75 (0.51-0.95) mg/dL Est GFR ( Amer) 110.1 (>60) Est GFR (Non-Af Amer) 85.6 (>60) BUN/Creatinine Ratio 16.0 (8-20) Glucose 170 H (70-100) mg/dL Calcium 9.5 (8.6-10.3) mg/dL Beta HCG, Quant 455.70 mIU/mL Urine Color Yellow Urine Appearance Cloudy Urine pH 5.0 (5-9) Ur Specific [place] 1.028 (1.010-1.030) Urine Protein Negative (Negative) Urine Ketones Trace A (Negative) Urine Blood Negative (Negative) Urine Nitrate Negative (Negative) Urine Bilirubin Negative (Negative) Urine Urobilinogen Negative (Negative) Ur Leukocyte Esterase Trace A (Negative) Urine WBC (Auto) Trace(0-5/hpf) (Absent) Urine RBC (Auto) Absent (Absent) Ur Squamous Epith Cells Present A (Absent) Urine Bacteria Absent (Absent) Urine Glucose Negative (Negative) Blood Type A Negative Antibody Screen Negative 06/18/17 Range/Units 21:45 WBC 7.5 (3.5-10.8) 10^3/ul RBC 4.59 (4.0-5.4) 10^6/ul Hgb 13.5 (12.0-16.0) g/dl Hct 39 (35-47) % MCV 86 (80-97) fL MCH 29 (27-31) pg MCHC 34 (31-36) g/dl RDW 13 (10.5-15) % Plt Count 221 (150-450) 10^3/ul MPV 8.9 (7.4-10.4) um3 Neut % (Auto) 55.7 (38-83) % Lymph % (Auto) 35.6 (25-47) % [place] % (Auto) 7.1 H (0-7) % Eos % (Auto) 1.2 (0-6) % Baso % (Auto) 0.4 (0-2) % Absolute Neuts (auto) 4.2 (1.5-7.7) 10^3/ul Absolute Lymphs (auto) 2.7 (1.0-4.8) 10^3/ul Absolute Monos (auto) 0.5 (0-0.8) 10^3/ul Absolute Eos (auto) 0.1 (0-0.6) 10^3/ul Absolute Basos (auto) 0 (0-0.2) 10^3/ul Absolute Nucleated RBC 0 10^3/ul Nucleated RBC % 0 Sodium (139-145) mmol/L Potassium (3.5-5.0) mmol/L Chloride (101-111) mmol/L Carbon Dioxide (22-32) mmol/L Anion Gap (2-11) mmol/L BUN (6-24) mg/dL Creatinine (0.51-0.95) mg/dL Est GFR ( Amer) (>60) Est GFR (Non-Af Amer) (>60) BUN/Creatinine Ratio (8-20) Glucose (70-100) mg/dL Calcium (8.6-10.3) mg/dL Beta HCG, Quant mIU/mL Urine Color Urine Appearance Urine pH (5-9) Ur Specific [place] (1.010-1.030) Urine Protein (Negative) Urine Ketones (Negative) Urine Blood (Negative) Urine Nitrate (Negative) Urine Bilirubin (Negative) Urine Urobilinogen (Negative) Ur Leukocyte Esterase (Negative) Urine WBC (Auto) (Absent) Urine RBC (Auto) (Absent) Ur Squamous Epith Cells (Absent) Urine Bacteria (Absent) Urine Glucose (Negative) Blood Type Antibody Screen Result Diagrams: 06/18/17 21:45 06/18/17 21:45 Lab Statement: Any lab studies that have been ordered have been reviewed, and results considered in the medical decision making process. Course/Dx - Course Course Of Treatment: Pt. presenting for vaginal bleeding in early . She has a benign abd. exam. She is afebrile with stable vital signs. Labs and u/ s were ordered. Beta quant elevate around 500. Blood type is A negative, rhogam ordered. Labs are otherwise unremarkable. Transvaginal u/s shows no gestational sac at this time which is expected with a quant so low. On re-exam pt. states bleeding as stopped. Results were discussed. Advised pt. to call OB tomorrow for an apt. Repeat quant in 48 hours. To return to ER for increased pain or bleeding. Pt. understands and agrees with plan. - Differential Diagnosis/HQI/PQRI: Incomplete , Missed , Threatened , Ectopic , Early - Diagnoses Provider Diagnoses: Threatened Discharge - Sign-Out/Discharge Documenting (check all that apply): Discharge - Discharge Plan Condition: Good Disposition: HOME Patient Education Materials: Threatened Miscarriage (ED) Forms: *Work Release Referrals: Heron Suarez MD [Medical Doctor] - Stephanie Umana NP [Primary Care Provider] - Additional Instructions: Call your OB tomorrow for an appointment Will need repeat level in 48 hours Return to ER for increased bleeding or pain - Billing Disposition and Condition Condition: GOOD Disposition: HOME
--- NOTE | 2017-06-19 07:44 | RAD ---
INDICATION: , vaginal bleeding. COMPARISON: Comparison is made with a prior pelvic ultrasound from every 2017. TECHNIQUE: Multiple real-time transvaginal images of the pelvis were obtained. FINDINGS: The uterus is normal in size measuring 7.6 x 4.4 x 5.6 cm. The endometrial echo measures 1.3 cm in thickness. No intrauterine gestational sac is seen. The right ovary measured 3.7 x 2.2 x 2.9 cm. The left ovary measured 2.2 x 1.4 x 2.6 cm. There is a small echogenic structure present within the right ovary likely representing a complex cyst, possibly a hemorrhagic cyst measuring 2.1 x 1.7 x 2.4 cm. There is vascular flow within both ovaries. There is a small amount of free intraperitoneal fluid in the adnexal regions and cul-de-sac. IMPRESSION: 1. NO INTRAUTERINE GESTATIONAL SAC IS VISUALIZED. THEREFORE DIFFERENTIAL DIAGNOSIS WOULD INCLUDE EARLY NORMAL , SPONTANEOUS MISCARRIAGE OR ECTOPIC . RECOMMEND CORRELATION WITH QUANTITATIVE BETA-HCG AND FOLLOW-UP TRANSVAGINAL PELVIC ULTRASOUNDS CLINICALLY NEEDED. 2. FINDINGS MOST CONSISTENT WITH A SMALL COMPLEX RIGHT OVARIAN CYST.
== END 2017-06-18 23:50 | disposition home or self-care (01) ==
LOC: ED 19:00
DX: O20.0 Threatened abortion (principal); O24.414 Gestational diabetes mellitus in pregnancy, insulin controlled; Z3A.08 8 weeks gestation of pregnancy; E78.00 Pure hypercholesterolemia, unspecified; J44.9 Chronic obstructive pulmonary disease, unspecified; K21.9 Gastro-esophageal reflux disease without esophagitis; F41.9 Anxiety disorder, unspecified; F32.9 Major depressive disorder, single episode, unspecified; Z88.6 Allergy status to analgesic agent; Z91.041 Radiographic dye allergy status; Z87.891 Personal history of nicotine dependence
CPT/HCPCS: 36415; 76817; 80048; 81003; 81015; 84702; 85025; 86850; 86900; 86901; 87086; 96372; 99282; J2790

== ENCOUNTER 2017-07-27 07:39 | Emergency (ER) | payer OTHER ==
[2017-07-27 08:44] LABS: ABS Basophils 0 10^3/ul (0-0.2); ABS Eosinophils 0.1 10^3/ul (0-0.6); ABS Lymphocytes 1.4 10^3/ul (1.0-4.8); ABS Monocytes 0.4 10^3/ul (0-0.8); ABS Neutrophils 2.5 10^3/ul (1.5-7.7); ABS Nucleated RBC 0 10^3/ul; Eosinophil % 1.7 % (0-6); Hematocrit 37 % (35-47); Hemoglobin 12.5 g/dl (12.0-16.0); Lymphocyte % 32.6 % (25-47); Mean Corpuscular HGB Conc 34 g/dl (31-36); Mean Corpuscular Hemoglobin 29 pg (27-31); Mean Corpuscular Volume 86 fL (80-97); Mean Platelet Volume 8.5 um3 (7.4-10.4); Nucleated Red Blood Cells % 0.1; Platelet Count 164 10^3/ul (150-450); Red Blood Count 4.28 10^6/ul (4.0-5.4); Red Cell Distribution Width 13 % (10.5-15); White Blood Count 4.4 10^3/ul (3.5-10.8)
[2017-07-27 08:53] LABS: INR 1.01 (0.77-1.02)
--- NOTE | 2017-07-27 08:53 | RAD ---
HISTORY: Bleeding and pain during conversation age by dates of 9 weeks and 0 days COMPARISONS: June 18, 2017 TECHNIQUE: Multiple transverse and longitudinal ultrasound images were obtained of the pelvis using grayscale and color Doppler imaging using the endovaginal transducer. FINDINGS: UTERUS: The uterus is normal in shape, size, contour, and echotexture. GESTATION: There is a single intrauterine gestation. The crown-rump length measures 1.2 cm for a gestational age of 7 weeks and 3 days. The RODO is March 12, 2018. cardiac motion is not detected. Gross movement is not identified. anatomy cannot be assessed secondary to early dates. The amniotic fluid is qualitatively normal. There are no retroplacental fluid collections. CUL-DE-SAC: There is no free fluid within the cul-de-sac. RIGHT OVARY: The right ovary measures 4.4 x 1.4 x 2 cm. LEFT OVARY: The left ovary measures 2.7 x 1.3 x 1.9 cm. BLADDER: The bladder is not well visualized. IMPRESSION: THERE IS A SINGLE INTRAUTERINE GESTATION OF 7 WEEKS AND 3 DAYS BY CROWN-RUMP LENGTH. NO CARDIAC ACTIVITY IS IDENTIFIED. THIS MAY BE ARTIFACT OF EARLY DATES OR MAY REFLECT EARLY FAILURE. RECOMMEND CORRELATION WITH SERIAL BETA-HCG LEVELS AND FOLLOW-UP IMAGING.
--- OUTSIDE RECORDS SUMMARY | 2017-07-27 08:57 | XMS REPORT ---
:1975 External Reference #:[id number] Author Organization [facility] Address [address] [address] Phone [phone] Care Team Providers Name Role Phone Stephanie Umana NP Care Team Information Anodiser Unavailable Stephanie Umana NP Primary Care Physician Unavailable Payers Type Date Identification Numbers Payment Provider Subscriber Commercial Policy Number: [id number] [employer] Angi Mares PayID: [id number] [address] [address] [place] [address] Problems Date Description Provider Status Onset: 06/28/2015 Obstructive sleep apnea syndrome Thuy Fuentes MD Active Onset: 06/28/2015 Morbid obesity Thuy Fuentes MD Active Family History Date [...] Form Strength Qnty SIG Indications Ordering Provider Ranitidine HCL / Active Tablets 150mg 60tab take one Unknown 0000 s tablet by mouth twice a day Humalog Mix / Active Suspension (50-50)10 Based Off Unknown 50/50 0000 0Unit/ML Of Sliding Scale Lantus Solostar / Active Solution 100Unit/M Once A Day Unknown 0000 Pen-Inject L 50 Units Colace / Active Capsules 100mg once daily Unknown 0000 /00/ Active Tablets Once daily Unknown Formula 0000 Sertraline HCL / Active Tablets 50mg once daily Unknown 0000 Gabapentin 03/10/ Hx Capsules 300mg 90cap 1 in the Unknown 2017 - s a.m. and 2 07/13/ at night 2018 Furosemide 00/00/ Hx Tablets 20mg 30tab 1 po qam Unknown 0000 - s prn 2017 Oxycodone/Aceta / Hx Tablets 5-325mg 60tab 1-2 tabs po Unknown minophen 0000 - s q 4 hrs prn pain 2018 Ventolin HFA / Hx Aerosol 108(90Bas 1unit 2 puffs po Unknown 0000 - e) s qid prn 05/25/ mcg/Act 2018 Travatan Z / Hx Solution 0.004% 5ml 1 gtt right Unknown 0000 - eye 2017 Azopt / Hx Suspension 1% 1 gtt tid Unknown 0000 - 2017 Betaxolol HCL / Hx Solution 0.5% 1 gtt both Unknown 0000 - eyes every 05/25/ morning 2018 Alphagan P / Hx Solution 0.1% Unknown 0000 - 2017 Spiriva // Hx Capsules 18mcg 30cap 1 Unknown Handihaler 0000 - s inhalation 05/25/ po qam 2018 Simvastatin 00/00/ Hx Tablets 20mg 90tab 1 po qd Unknown 0000 - s 2017 Flexeril 00/ Hx Tablets 5mg 30tab 1 tablet Unknown 0000 - s three times 05/25/ a day as 2018 needed Omeprazole 0000/ Hx Capsules DR 20mg 30cap 1 po qd Unknown 0000 - s 2017 Celexa 00/00/ Hx Tablets 20mg 30tab 1 po qd Unknown 0000 - s 2017 Metformin HCL /00/ Hx Tablets 1000mg 180ta 1 po bid Unknown 0000 - bs 2017 Ibuprofen /00/ Hx Tablets 600mg 60tab 1 po tid Unknown 0000 - s prn 2017 Cosopt 00/00/ Hx Solution 22.3-6.8m 1 gtt right Unknown 0000 - g/ml eye bid 2017 Novolog 00/00/ Hx Solution 100Unit/M 1bott 30 units am Unknown 0000 - L le 34 units dinner 2017 Humulin R U-500 0000/ Hx Solution 500Unit/M 20uni 40 units Unknown (Concentrated) 0000 - L ts bid 2017 Acetazolamide / Hx Tablets 250mg 90tab 1/2 po qid Unknown 0000 - s 2017 Vital Signs Date Vital Result Comment 07/14/2017 Height 65 inches 5'5" Weight 235.00 lb Heart Rate 80 /min BP Systolic Sitting 112 mmHg BP Diastolic Sitting 64 mmHg Respiratory Rate 16 /min BMI (Body Mass Index) 39.1 kg/m2 05/26/2017 Height 65 inches 5'5" Weight 233.25 [...] Test Date Test Result H/L Range Note Laboratory test finding 06/11/2017 HCG 7.21 mIU/mL 1 Urine Culture & 12/06/2010 Urine Culture NF1 2 Sensitivi Sensitivi 1 <5.0 Negative 5.0 - 25.0 Indeterminate (Repeat testing recommended after 72 hours) >25.0 Positive Perimenopausal women can display HCG levels of up to 20 mIU/mL 2 SPECIMEN CONTAINS NORMAL URETHRAL OR PERINEAL KATHRYN AND DOES NOT SUGGEST URINARY TRACT INFECTION Procedures Date CPT Code Description Status 08/14/2015 68583 Polysomnography Sleep Staging 4+ Parameters W/Cpap Completed 12/04/2009 96132 Treadmill Interp/Report Only Completed 12/04/2009 66048 Stress Test Supervsn W/Out I/R Completed 07/19/2009 43777 EKG Tracing & Interpretation Completed 09/21/2007 33399 Color Flow Doppler/Interp & Reprt Completed 09/21/2007 28904 Pulse Wave/Continuous-Interp.RPT Completed 09/21/2007 26054 Pulse Wave/Continuous-Interp.RPT Completed 09/21/2007 46649 Echocardiogram Completed 09/21/2007 01255 Treadmill Interp/Report Only Completed 09/21/2007 43544 Treadmill Interp/Report Only Completed 09/21/2007 71998 Stress Test Supervsn W/Out I/R Completed 09/21/2007 61335 Stress Test Supervsn W/Out I/R Completed Encounters Type Date Location Provider CPT E/M Dx Office Visit 05/26/2017 [facility] Louis Craft, [address] M54.2 10:45a [facility] Cristiane R41.3 S06.0x0D G44.319 Office Visit 03/11/2016 9:30a [facility] [place] [address] G47.33 [facility] Office Visit 09/07/2015 10:45a [facility] [address] G47.33 [facility] Office Visit 06/28/2015 10:15a [facility] [address] G47.33 [facility] E66.01 Office Visit 07/19/2009 8:30a [facility] Ashlyn Portillo, [address] 786.50 Cristiane 272.4 Plan of Care 07/14/2017 - Louis Craft M.D.S06.0x0D Concussion without loss of consciousness, subs encntrFollow up:PRN
--- OUTSIDE RECORDS SUMMARY | 2017-07-27 08:57 | XMS REPORT ---
:1975 External Reference #:[id number] Author Organization transaction coordinator [facility] Address [address] [place] [address] Phone [phone] Care Team Providers Name Role Phone Stephanie Umana NP Primary Care Physician Unavailable Payers Type Date Identification Numbers Payment Provider Subscriber Commercial Policy Number: [id number] [facility] Angi Trujillo PayID: [id number] [address] [address] [place] [address] Problems Description No Information Family History Date Family Member(s) Problem(s) Comments Father Hypertension Mother due to Heart Disease () Mother due to Stroke () Mother due to Diabetes () First Son A&W [id number] sx Second Son A&W First Daughter A&W Paternal Grandfather due to Heart Disease () Paternal Grandmother Heart Disease Paternal Grandmother Stroke Maternal Grandfather due to Alzheimer's () Disease Maternal Grandmother Heart Disease Maternal Grandmother Stroke Social History Type Date Description Comments Education Highest level completed, 12th grade Marital Status Single Lives With Boyfriend Lives With Children Diet Healthy, Well Balanced 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 Cigarette Use Former Cigarette Smoker ETOH Use Denies alcohol use Recreational Drug Use Denies Drug Use Smoking Patient is a former smoker Daily Caffeine Consumes on average 2 cups of coffee per day Exercise Type/Frequency Exercises regularly Seat Belt/Car Seat Always uses seat belt Currently Active Patient is currently sexually active Contraceptive Methods None Contraceptive Methods Past methods include levonorgestrel IUD STD's No STD History Allergies, Adverse Reactions, Alerts Date Description Reaction Status Severity Comments 03/16/2008 Iodine Anaphylaxis active Fatal 03/16/2008 Shellfish Anaphylaxis active Fatal 10/25/2014 Aspirin active Not indicated s/p bariatric surgery 10/25/2014 Betadine Urticaria active Moderate Medications Medication Date Status Form Strength Qnty SIG Indications Ordering Provider Blood Glucose 07/09/ Active Kit W/Device 1Moni use as Mahrie Monitoring 2017 tor directed Jose, System CN Blood Glucose 07/09/ Active Strips [facility] blood Garcia, glucose CNM monitor. use as directed 4x/day Lancets 07/09/ Active Misc 100un [facility] 2018 its blood Garcia, glucose CNM monitor. use as directed four times a day Colace 06/18/ Active Capsules 100mg Twice Daily Unknown 2017 Humalog 06/18/ Active Solution 100Unit/M as Directed Unknown 2017 L Ranitidine HCL 07/07/ Active Tablets 150mg 60tab Take One 530.81 Jarvis 2007 s Tablet By Tamiko WILSON Mouth Twice A Day For Stomach Acid Basaglar / Active Solution 100Unit/M Unknown Kwikpen 0000 Pen-Inject L Zoloft / Active Tablets 50mg 1 by mouth Unknown 0000 every day Multi / Active Capsules 27-0.8-22 take one tab Unknown +Dha 0000 8mg by mouth daily (any pnv with dha 200-400 as covered by insurance) Blood Glucose 07/09/ Hx Strips 1Box [facility] 2017 - blood Garcia, 07/09/ glucose CNM 2017 monitor. use as directed 4x/day Basaglar 06/18/ Hx Solution 100Unit/M Every Unknown Kwikpen 2017 - Pen-Inject L Morning 2017 Zoloft 06/18/ Hx Tablets 25mg Every Day Unknown 2017 - 2017 Mirena 11/09/ Hx IUD 20mcg/24H Heron Suarez MD 2017 Lantus 08/17/ Hx Solution 100Unit/M inject 25 250.02 Riaz Umana 2014 - Pen-Inject L units daily Stephanie 07/09/ for diabetes HEARING SCREEN COORDINATOR 2017 Novofine Plus 08/17/ Hx Misc 32G X 4 100un use daily Dong 2014 - mm its with lantus Shawnti 07/09/ flexpen HEARING SCREEN COORDINATOR 2017 Tudorza 06/28/ Hx Aerosol 400mcg/Ac 1unit 1 puff twice 786.05 Jensen Umana 2015 - t s a day for Shawnti 10/23/ copd...repla HEARING SCREEN COORDINATOR 2014 keven spiriva Furosemide 07/12/ Hx Tablets 20mg 30tab Take One 782.3 , 2012 - s Tablet By Stephanie 03/ Mouth Every HEARING SCREEN COORDINATOR 2018 Day If Needed For Leg Swelling Travatan Z 02/24/ Hx Solution 0.004% 1 gtt right Pitts, 2011 - eye Alfredo , 2014 First PR, eg M.D. Azopt 02/24/ Hx Suspension 1% 1 gtt tid Pitts, 2011 - Alfredo , 2014 First [place], eg M.D. Betaxolol HCL 02/24/ Hx Solution 0.5% Pitts, 2011 - Alfredo , 2014 First PR, eg M.D. Alphagan P 02/24/ Hx Solution 0.1% Pitts, 2011 - Alfredo , 2014 First PR, eg M.D. Simvastatin 03/20/ Hx Tablets 20mg 30tab Take One 272.2 2011 - s Tablet By Stephanie 07/09/ Mouth At HEARING SCREEN COORDINATOR 2018 Bedtime For Cholesterol; Replaces Lipitor; Needs Cholesterol Check In 6 Weeks Monistat 3 12/10/ Hx Cream 4% 1unit use daily as 2010 - directed for nti 10/24/ three days, HEARING SCREEN COORDINATOR 2014 repeat as needed Nystatin 12/10/ Hx Powder 247024Pql 1unit apply to , 2010 - t/GM s affected [facility] 07/09/ area tid HEARING SCREEN COORDINATOR 2017 until resolved Omeprazole 07/09/ Hx Capsules DR 20mg 30cap Take One 530.81 , 2009 - s Capsule By Stephanie 07/09/ Mouth Every HEARING SCREEN COORDINATOR 2018 Day Before Meals For GERD Truetrack Test 04/20/ Hx Strips 100un use qid as 2009 - its directed to [facility] 07/09/ test blood HEARING SCREEN COORDINATOR 2018 sugars Ketoconazole 02/16/ Hx Cream 2% 2unit apply small 616.10 2008 - [facility]/ affected HEARING SCREEN COORDINATOR 2014 area bid for yeast Truetrack Test 03/16/ Hx Strips 100un use as 2008 - its directed [facility] 07/09/ HEARING SCREEN COORDINATOR 2018 Cosopt PF / Hx Solution 22.3-6.8m 1 drop right Unknown 0000 - g/ml eye bid 2014 Humulin R / Hx Solution 100Unit/M Unknown 0000 - L 2017 Hydrocodone / Hx Solution 7.5-325mg Unknown Bitartrate/Silvio 0000 - /15ML taminophen 2017 Docqlace / Hx Capsules 100mg Unknown 0000 - 2017 Gabapentin / Hx Capsules 300mg 1 tablets by Unknown 0000 - mouth three 07/09/ times a day 2017 Vitamin D3 / Hx Capsules 1000Unit 1 by mouth Unknown 0000 - every day 2017 Miralax / Hx Unknown 0000 - 2017 Medications Administered in Office Medication Date Status Form Strength Qnty SIG Indications Ordering Provider PT SCRN Tbco Administered Injection Mahrie Id as Non User 018 CYNTHIA Garcia Immunizations CPT Code Status Date Vaccine Lot # [id number] Given 12/08/2013 Influenza Virus Vaccine, Quadrivalent, Split, Preservative Free 21606 Given 12/03/2012 Influenza Virus Vaccine Split Virus Use For Individual 3Yr Older 04596 Given 12/25/2011 Tetnus, Diptheria Toxoids And Acellular Pertussis, PT > 7Yrs Old 66941 Given 12/25/2011 Influenza Virus Vaccine Split Virus Use For Individual 3Yr Older 98482 Given 12/10/2010 Influenza Virus Vaccine Split Virus Use For Individual 3Yr Older 73331 Given 12/29/2008 Influenza Virus Vaccine Split Virus Use For Individual 3Yr Older Vital Signs Date Vital Result Comment 07/09/2017 BP Systolic 112 mmHg BP Diastolic 68 mmHg Height 65 inches 5'5" Weight 237.00 lb BMI (Body Mass Index) 39.4 kg/m2 5 Parity 3 06/18/2017 BP Systolic 124 mmHg BP Diastolic 71 mmHg Body Temperature 98.1 F Heart Rate 74 /min Respiratory Rate 16 /min Height 65 inches Weight 230.00 lb BMI (Body Mass Index) 38.2 kg/m2 12/15/2014 BP Systolic 116 mmHg BP Diastolic 68 mmHg Height 64.5 inches 5'4.50" Weight 273.00 lb BMI (Body Mass Index) 46.1 kg/m2 Last Menstrual Period 3353091 4 Parity 3 11/09/2014 BP Systolic 136 mmHg BP Diastolic 78 mmHg Height 64.5 inches 5'4.50" Weight 276.00 lb BMI (Body Mass Index) 46.6 kg/m2 Last Menstrual Period 8590245 4 Parity 3 10/25/2014 BP Systolic 120 mmHg BP Diastolic 82 mmHg Height 64.5 inches 5'4.50" Weight 278.00 lb BMI (Body Mass Index) 47.0 kg/m2 4 Parity 3 09/14/2014 BP Systolic 118 mmHg BP Diastolic 64 mmHg Heart Rate 72 /min Weight 297.00 lb Results Test Date Test Result H/L Range Note Laboratory test finding 06/22/2017 HCG 2140.00 mIU/mL 1 Laboratory Studies 06/18/2017 Absolute Basophils 0 10^3/ul 0-0.2 (auto) Absolute Eosinophils (auto) 0.1 10^3/ul 0-0.6 Absolute Lymphocytes (auto) 2.7 10^3/ul 1.0-4.8 Absolute Monocytes (auto) 0.5 10^3/ul 0-0.8 Absolute Neutrophils (auto) 4.2 10^3/ul 1.5-7.7 Anion Gap 5 mmol/L 2-11 BUN/Creatinine Ratio 16.0 8-20 Basophils (%) (Auto) 0.4 % 0-2 Beta HCG, Quantitative 455.70 mIU/mL Blood Urea Nitrogen 12 mg/dL 6-24 Calcium Level 9.5 mg/dL 8.6-10.3 Carbon Dioxide Level 30 mmol/L 22-32 Chloride Level 102 mmol/L 101-111 Creatinine 0.75 mg/dL 0.51-0.95 Eosinophils (%) (Auto) 1.2 % 0-6 Estimated GFR () 110.1 Estimated GFR (Non- 85.6 Glucose Level 170 mg/dL High 70-100 Hematocrit 39 % 35-47 Hemoglobin 13.5 g/dL 12.0-16.0 Lymphocytes (%) (Auto) 35.6 % 25-47 Mean Corpuscular Hemoglobin 29 pg 27-31 Mean Corpuscular Hemoglobin Concent 34 g/dL 31-36 Mean Corpuscular Volume 86 fL 80-97 Mean Platelet Volume 8.9 um3 7.4-10.4 Monocytes (%) (Auto) 7.1 % High 0-7 Neutrophils (%) (Auto) 55.7 % 38-83 Nucleated RBC Absolute Count (auto) 0 10^3/ul Nucleated Red Blood Cells % 0 Platelet Count 221 10^3/ul 150-450 Potassium Level 3.7 mmol/L 3.5-5.0 Red Blood Count 4.59 10^6/ul 4.0-5.4 Red Cell Distribution Width 13 % 10.5-15 Sodium Level 137 mmol/L Low 139-145 White Blood Count 7.5 10^3/ul 3.5-10.8 Laboratory Studies 06/18/2017 Urine Specific [place] 1.028 1.010-1.030 Urine pH 5.0 5-9 Laboratory test finding 08/17/2014 Glucose-Fingerstick 259 1 <5.0 Negative 5.0 - 25.0 Indeterminate (Repeat testing recommended after 72 hours) >25.0 Positive Perimenopausal women can display HCG levels of up to 20 mIU/mL Procedures Date CPT Code Description Status 07/09/2017 92833 OB Ultrasound First Trimester Completed 11/09/2014 72424 Remove Intrauterine Device Completed 11/09/2014 10434 Insert Intrauterine Device Completed Encounters Type Date Location Provider CPT E/M Dx Office Visit 07/09/2017 9:20a [facility] [place]indu [place] [address] E11.8 O09.91 Office Visit 12/15/2014 9:30a [place] [address] Z30.431 Office Visit 10/25/2014 2:00p [place] [address] V25.09 Plan of Care 07/09/2017 - LIGIA GayleME11.8 Type 2 diabetes mellitus with unspecified complicationsComments:Follow-up with PCP and diabetic clinic as well as the [facility] for ongoing mgmtO09.91 Supervision of high risk , unsp, first trimesterComments:In consultation with Dr. Suarez refer to the [facility] to establish care and follow for .
[2017-07-27 09:03] LABS: EGFR Non-African American 98.7 (>60)
[2017-07-27 09:34] VITALS: BP 129/67
--- NOTE | 2017-07-27 09:37 | ED ---
- HPI Summary HPI Summary: Patient is a 42-year-old female who is approximately 9 weeks presenting to the ED with scant vaginal bleeding only when wiping and abdominal pain. She states the vaginal bleeding began several days ago, but denies any abdominal pain until today. She called her [facility] in [place] who stated to come to the ED for any worsening symptoms. History of 2 stillbirths and multiple spontaneous abortions. She has 3 living children. History of insulin- dependent diabetes. No history of hypertension or other cardiac problems. She denies any difficulty breathing, chest pain. Pain in the abdomen is upper abdominal pain and does not radiate through to the back. Denies any urinary symptoms. Denies any chance of STDs and denies any other vaginal discharge. - History of Current Complaint Chief Complaint: EDVaginalBleeding Stated Complaint: 10 WEEKS PREGS BLEEDING Time Seen by Provider: 07/27/17 07:55 Hx Obtained From: Patient, Family/State'S Attorney Chief Complaint: Concern for Embryonic Dem Onset/Duration: Started Days Ago Timing: Intermittent Severity: Mild Current Severity: None Pain Intensity: 0 Location of Pain: Diffuse Character: None Associated Signs and Symptoms: Positive: Negative - Assessment Hx Now: Yes History of Ectopic : No Contraction Intensity: Mild Hx Hysterectomy: No History of STI/STD: No - Risk Factors Ovarian Torsion Risk Factor: Reproductive Age - Allergies/Home Medications Allergies/Adverse Reactions: Allergies Allergy/AdvReac Type Severity Reaction Status Date / Time aspirin Allergy Severe See Comment Verified 07/27/17 07:48 Iodinated Contrast- Oral and Allergy Severe Swelling Verified 07/27/17 07:48 IV Dye Of Face,Lips,& Throat povidone-iodine Allergy Severe Swelling Verified 07/27/17 07:48 [From Betadine] Of Face,Lips,& Throat shellfish derived Allergy Severe Swelling Verified 07/27/17 07:48 Of Face,Lips,& Throat soap [From Betadine] Allergy Severe Swelling Verified 07/27/17 07:48 Of Face,Lips,& Throat PMH/Surg Hx/FS Hx/Imm Hx Previously Healthy: Yes Endocrine/Hematology History: Reports: Hx Diabetes, Hx Anemia - HX OF WHEN , Other Endocrine/Hematological Disorders - obesity - s/p gastric bypass surgery Cardiovascular History: Reports: Hx Hypercholesterolemia - statin Denies: Hx Myocardial Infarction - Present in EMR PMHx, but pt denies and report negative stress test. Respiratory History: Reports: Hx Chronic Obstructive Pulmonary Disease (COPD), Hx Sleep Apnea GI History: Reports: Hx Gastroesophageal Reflux Disease Musculoskeletal History: Reports: Hx Arthritis - BACK, Hx Back Problems Sensory History: Reports: Hx Cataracts - BILAT, Hx Contacts or Glasses - READING , Other Sensory Impairments - pressure behind right eye Denies: Hx Hearing Aid, Hx Hearing Problem Opthamlomology History: Reports: Hx Cataracts - BILAT, Hx Contacts or Glasses - READING, Other Sensory Impairments - pressure behind right eye Psychiatric History: Reports: Hx Anxiety - NO MEDS, Hx Depression - NO MEDS - Surgical History Surgery Procedure, Year, and Place: cholecystectomy 2008 [facility]. appendectomy [facility] en y 07/2014 [facility] LEFT EYE SCAR TISSUE REMOVAL 04/22 [facility] REPAIR RIGHT MACULAR HOLE 2012 Hx Anesthesia Reactions: No - Immunization History Date of Tetanus Vaccine: unsure Date of Influenza Vaccine: 2011 Hx Pertussis Vaccination: No Immunizations Up to Date: Yes Infectious Disease History: No Infectious Disease History: Denies: Traveled Outside the [place] in Last 30 Days - Family History Known Family History: Positive: Diabetes Negative: Blood Disorder Family History: Renal Failure, CVA, thyroid dz. - Social History Occupation: Employed Full-time Lives: With Family Alcohol Use: None Hx Substance Use: No Substance Use Type: Reports: None Substance Use Comment - Amount & Last Used: percocet Hx Tobacco Use: Yes Smoking Status (MU): Former Smoker Type: Cigarettes Have You Smoked in the Last Year: No Review of Systems Constitutional: Negative Negative: Fever, Chills, Fatigue, Skin Diaphoresis ENT: Negative Cardiovascular: Negative Negative: Shortness Of Breath, Cough Positive: Abdominal Pain - diffuse Genitourinary: Negative Positive: no symptoms reported, see HPI, other - vaginal bleeding Neurological: Negative Psychological: Normal All Other Systems Reviewed And Are Negative: Yes Physical Exam - Physical Exam Triage Information Reviewed: Yes Vital Signs Reviewed: Yes Appearance: Positive: Well-Nourished Skin: Positive: Skin Color Reflects Adequate Perfusion Head/Face: Positive: Normal Head/Face Inspection Eyes: Positive: EOMI, DENNIS Neck: Positive: Nontender, No Lymphadenopathy Respiratory/Lung Sounds: Positive: Clear to Auscultation, Breath Sounds Present Cardiovascular: Positive: RRR, Pulses are Symmetrical in both Upper and Lower Extremities Abdomen Description: Positive: Nontender, Soft Musculoskeletal: Positive: Normal, Strength/ROM Intact Neurological: Positive: Speech Normal Psychiatric: Positive: Affect/Mood Appropriate AVPU Assessment: Alert Diagnostics - Vital Signs Vital Signs Temp Pulse Resp BP Pulse Ox 07/27/17 09:33 98.1 F 77 16 129/67 99 07/27/17 07:43 97.6 F 67 18 129/72 98 - Laboratory Lab Results: Lab Results 07/27/17 07/27/17 07/27/17 Range/Units 08:34 08:34 08:34 WBC 4.4 (3.5-10.8) 10^3/ul RBC 4.28 (4.0-5.4) 10^6/ul Hgb 12.5 (12.0-16.0) g/dl Hct 37 (35-47) % MCV 86 (80-97) fL MCH 29 (27-31) pg MCHC 34 (31-36) g/dl RDW 13 (10.5-15) % Plt Count 164 (150-450) 10^3/ul MPV 8.5 (7.4-10.4) um3 Neut % (Auto) 56.2 (38-83) % Lymph % (Auto) 32.6 (25-47) % [place] % (Auto) 8.8 H (0-7) % Eos % (Auto) 1.7 (0-6) % Baso % (Auto) 0.7 (0-2) % Absolute Neuts (auto) 2.5 (1.5-7.7) 10^3/ul Absolute Lymphs (auto) 1.4 (1.0-4.8) 10^3/ul Absolute Monos (auto) 0.4 (0-0.8) 10^3/ul Absolute Eos (auto) 0.1 (0-0.6) 10^3/ul Absolute Basos (auto) 0 (0-0.2) 10^3/ul Absolute Nucleated RBC 0 10^3/ul Nucleated RBC % 0.1 INR (Anticoag Therapy) 1.01 (0.77-1.02) Sodium 137 L (139-145) mmol/L Potassium 3.9 (3.5-5.0) mmol/L Chloride 103 (101-111) mmol/L Carbon Dioxide 29 (22-32) mmol/L Anion Gap 5 (2-11) mmol/L BUN 8 (6-24) mg/dL Creatinine 0.66 (0.51-0.95) mg/dL Est GFR ( Amer) 126.9 (>60) Est GFR (Non-Af Amer) 98.7 (>60) BUN/Creatinine Ratio 12.1 (8-20) Glucose 141 H (70-100) mg/dL Calcium 9.1 (8.6-10.3) mg/dL Total Bilirubin 0.50 (0.2-1.0) mg/dL AST 23 (13-39) U/L ALT 30 (7-52) U/L Alkaline Phosphatase 49 (34-104) U/L Total Protein 6.9 (6.4-8.9) g/dL Albumin 3.9 (3.2-5.2) g/dL Globulin 3.0 (2-4) g/dL Albumin/Globulin Ratio 1.3 (1-3) Beta HCG, Quant Pending Result Diagrams: 07/27/17 08:34 07/27/17 08:34 Lab Statement: Any lab studies that have been ordered have been reviewed, and results considered in the medical decision making process. Course/Dx - Course Course Of Treatment: During the course of treatment, the patient's evaluated for a possible embryonic demise. Transvaginal ultrasound obtained: IMPRESSION: THERE IS A SINGLE INTRAUTERINE GESTATION OF 7 WEEKS AND 3 DAYS BY CROWN-RUMP LENGTH. NO. CARDIAC ACTIVITY IS IDENTIFIED. THIS MAY BE ARTIFACT OF EARLY DATES OR MAY REFLECT. EARLY FAILURE. RECOMMEND CORRELATION WITH SERIAL BETA-HCG LEVELS AND FOLLOW-UP. IMAGING. HCG obtained. Rhogram given as patient is Rh-. During the course of treatment, she states she no longer has abdominal pain and has not had any vaginal bleeding since being here. She states she is feeling improved. I've given the results of her test and have said this is too early at this point to ascertain if this is embryonic demise or a normal . I have called Dr. Toledo at 9:20 AM. She states her office will recheck him to patient for a repeat ultrasound in 1 week's time. - Differential Diagnosis/HQI/PQRI: Incomplete , Missed , Spontaneous , Threatened , Early - Diagnoses Provider Diagnoses: Vaginal bleeding Discharge - Sign-Out/Discharge Documenting (check all that apply): Discharge/Admit/Transfer - Discharge Plan Condition: Stable Disposition: HOME Patient Education Materials: First Trimester Vaginal Bleed (ED) Referrals: Taylor Toledo MD [Medical Doctor] - Stephanie Umana NP [Primary Care Provider] - Additional Instructions: Please follow up with Dr. Toledo If you develop worsening symptoms, please return to the ED - Billing Disposition and Condition Condition: STABLE Disposition: HOME
[2017-07-27] MEDS ORDERED: RHO D Immune Globulin (HUMAN)* 300 MCG = 1,500 I.U. INJ IM SCH (10:00)
== END 2017-07-27 09:33 | disposition home or self-care (01) ==
LOC: ED 07:39
DX: O46.91 Antepartum hemorrhage, unspecified, first trimester (principal); Z3A.09 9 weeks gestation of pregnancy; E11.9 Type 2 diabetes mellitus without complications; E78.00 Pure hypercholesterolemia, unspecified; J44.9 Chronic obstructive pulmonary disease, unspecified; K21.9 Gastro-esophageal reflux disease without esophagitis; Z87.891 Personal history of nicotine dependence
CPT/HCPCS: 36415; 76817; 80053; 84702; 85025; 85610; 86850; 86870; 86880; 86900; 86901; 96372; 99283; J2790

== ENCOUNTER 2017-08-07 18:23 | Day surgery (SDC) | payer OTHER ==
[2017-08-07] MEDS ORDERED: Lidocaine 2% PF * 5 ML VIAL ONE (19:11)
[2017-08-07] MEDS ORDERED: fentaNYL* 50 MCG/ML 2 ML VIAL (100 MCG VIAL) ONE (19:11)
[2017-08-07] MEDS ORDERED: Midazolam* 1 MG/ML 2 ML VIAL (2 MG) ONE (19:11)
[2017-08-07] MEDS ORDERED: Lidocaine 2% PF* 10 ML AMP ONE (19:11)
[2017-08-07] MEDS ORDERED: Propofol* 10 MG/ML 20 ML BTL IV PUSH ONE (19:11)
[2017-08-07] MEDS ORDERED: Chloroprocaine 2%* 20 ML VIAL ONE (19:11)
[2017-08-07] MEDS ORDERED: Buffered Lidocaine 0.9% SYRIN* 5 ML/SYR SYRINGE INTRADERM ONE (19:33)
[2017-08-07] MEDS ORDERED: Sodium Citrate/Citric Acid* 15 ML UDC PO ONE (19:33)
[2017-08-07] MEDS ORDERED: Scopolamine 1.5 mg* PATCH TRANSDERM PRN (19:34)
[2017-08-07] MEDS ORDERED: Acetaminophen TAB* 325 MG PO PRN (19:34)
[2017-08-07] MEDS ORDERED: fentaNYL* 50 MCG/ML 2 ML VIAL (100 MCG VIAL) IV PRN (19:34)
[2017-08-07] MEDS ORDERED: HYDROmorphone INJ* 1 MG/ML CARPUJECT SYRINGE IV PRN (19:34)
[2017-08-07] MEDS ORDERED: oxyCODONE/Acetamin 5/325 MG* TAB PO PRN (19:34)
[2017-08-07] MEDS ORDERED: Naloxone* 0.4 MG/ML 1 ML VIAL IV PRN (19:34)
[2017-08-07] MEDS ORDERED: Ondansetron INJ* 2 MG/ML VIAL IV PRN (19:34)
[2017-08-07] MEDS ORDERED: Sodium Citrate/Citric Acid* 15 ML UDC ONE (19:49)
[2017-08-07] MEDS ORDERED: DOXYcycline IV* 100 MG in NS 0.9% 250 ML* 250 ML IVPB ONE (20:00)
[2017-08-07] MEDS ORDERED: Ketorolac INJ* 30 MG/ML 1 ML VIAL ONE (20:21)
[2017-08-07] MEDS ORDERED: Silver Nitrate/Potassium Nitr* 1 EA STICK ONE (20:36)
[2017-08-07 21:51] VITALS: BP 146/89
--- NOTE | 2017-08-08 14:43 | OP ---
DATE OF OPERATION: 08/07/17 [facility] DATE OF : 77 SURGEON: Heron Suarez MD ANESTHESIOLOGIST: Dr. Reinoso. ANESTHESIA: Spinal. PRE-OP DIAGNOSIS: Missed . POST-OP DIAGNOSIS: Missed . OPERATIVE PROCEDURE: Suction dilation and curettage. ESTIMATED BLOOD LOSS: 100 cc. URINE OUTPUT: 50 cc. IV FLUIDS: 500 cc of lactated Ringer's. MATERIALS TO LAB: Products of conception. INDICATIONS: This patient was a 42-year-old 5, para 3 who was followed in the clinic for the last week or two with early and then found to have a missed . The patient opted to try medical management, but with misoprostol, she only had some bleeding and the intrauterine remained today. The patient strongly desired to have a D and C performed today, so she was counseled and consented for the procedure. FINDINGS: Uterine cavity with moderate amount of fluid and tissue, which was removed without difficulty. COMPLICATIONS: None. DESCRIPTION OF PROCEDURE: The risks, benefits, and alternatives were described to the patient and informed consent was obtained. The patient was taken to the operating room with IV running where spinal anesthesia was induced and found to be adequate. The patient was prepped and draped in a normal sterile fashion in the high lithotomy position and Heath stirrups. Prep was performed using only saline as the patient has a significant BETADINE allergy. A time-out was performed. The bladder was emptied. A bivalved speculum was placed in the vagina and a single- tooth tenaculum was placed on the anterior cervix. The cervix was then gently dilated using Hanks dilators to a size 30. At that time , a size 8 curved suction curette was then advanced through the cervix and into the uterine cavity without difficulty. The uterus sounded to about 10 cm. With suction running, all of the fluid and tissue was removed with 2 passes. A gentle sharp curettage was then performed using a medium banjo curette and there was no remaining tissue present. There was minimal bleeding from the os at that time. The tenaculum was removed from the cervix and after placing some pressure and then some silver nitrate on the tenaculum sites, there was good hemostasis. The patient was then returned to the supine position and the procedure was completed. The patient tolerated the procedure well. Sponge, lap, and needle counts were correct x2. [id number] #: [id number] MTDD
[2017-08-10] MEDS ORDERED: Scopolamine PATCH Remove* 1 NOTE MISC PATCH OFF ONE (19:34)
== END 2017-08-07 22:40 | disposition home or self-care (01) ==
LOC: OR 18:23
PROVIDERS: ATTEND Obstetrics & Gynecology
DX: O02.1 Missed abortion (principal); Z87.891 Personal history of nicotine dependence; E11.9 Type 2 diabetes mellitus without complications; Z79.4 Long term (current) use of insulin; F41.8 Other specified anxiety disorders; E78.00 Pure hypercholesterolemia, unspecified; J44.9 Chronic obstructive pulmonary disease, unspecified; M19.90 Unspecified osteoarthritis, unspecified site; Z68.38 Body mass index [BMI] 38.0-38.9, adult; G47.33 Obstructive sleep apnea (adult) (pediatric)
CPT/HCPCS: 88305; A9270-GY; J1885; J2001; J2250; J2400; J2704; J3010

== ENCOUNTER 2018-01-17 12:24 | Emergency (ER) | payer OTHER ==
[2018-01-17] MEDS ORDERED: Sucralfate TAB* 1 GM PO ONE (13:16)
--- NOTE | 2018-01-17 13:19 | ED ---
Abdominal Pain/Female - HPI Summary HPI Summary: The patient is a 42 y/o F presenting to [facility] accompanied by with a chief complaint of intermittent aching epigastric abd pain starting a week ago, worsening last night. The pain starts in the epigastric region, and radiates to the right flank, right lower back, and anterior chest and lasts as severe pain for 15 minutes, and then dulls itself for about an hour. The pain, which is not currently present, had an onset today at around 11:00. The pt was sitting at the time, and she has been eating normally as food does not aggravate the pain. Lying down on her side helps to alleviate the pain when it is present. She states that when the pain is in her chest, she has SOB. She denies changes in urination and BM. She also reports that she is 15 months and is currently on care. She has hx of GERD, bariatric pouch surgery, cholecystectomy, and appendectomy. She takes ranitidine for GERD but has not taken it in two weeks because her insurance does not cover it. , P: 3, A: 5. - History of Current Complaint Chief Complaint: EDAbdPain Stated Complaint: ABD PAIN Time Seen by Provider: 01/17/18 13:01 Hx Obtained From: Patient Hx Last Menstrual Period: 7 years ago ?: Yes - 15 weeks Onset/Duration: Lasting Days - a week, Still Present Timing: Intermittent Episode Lasting - an hour Severity Initially: Moderate Severity Currently: Mild Pain Intensity: 0 Pain Scale Used: 0-10 Numeric Location: Epigastric Radiates: Yes Radiates to: Back - right lower, Flank - right, Chest - anterior Character: Dull Aggravating Factor(s): Nothing Alleviating Factor(s): Position - lying on side Associated Signs and Symptoms: Positive: Other: - POSITIVE: SOB; NEGATIVE: changes in urination or BM. Negative: Decreased Appetite Allergies/Adverse Reactions: Allergies Allergy/AdvReac Type Severity Reaction Status Date / Time aspirin Allergy Severe See Comment Verified 08/07/17 19:16 Iodinated Contrast- Oral and Allergy Severe Swelling Verified 08/07/17 19:16 IV Dye Of Face,Lips,& Throat povidone-iodine Allergy Severe Swelling Verified 08/07/17 19:16 [From Betadine] Of Face,Lips,& Throat shellfish derived Allergy Severe Swelling Verified 08/07/17 19:16 Of Face,Lips,& Throat soap [From Betadine] Allergy Severe Swelling Verified 08/07/17 19:16 Of Face,Lips,& Throat PMH/Surg Hx/FS Hx/Imm Hx Endocrine/Hematology History: Reports: Hx Diabetes, Hx Anemia - HX OF WHEN , Other Endocrine/Hematological Disorders - obesity - s/p gastric bypass surgery Cardiovascular History: Reports: Hx Hypercholesterolemia - statin Denies: Hx Myocardial Infarction - Present in EMR PMHx, but pt denies and report negative stress test. Respiratory History: Reports: Hx Chronic Obstructive Pulmonary Disease (COPD), Hx Sleep Apnea GI History: Reports: Hx Gastroesophageal Reflux Disease Musculoskeletal History: Reports: Hx Arthritis - BACK, Hx Back Problems Sensory History: Reports: Hx Cataracts - BILAT, Hx Contacts or Glasses - READING , Other Sensory Impairments - pressure behind right eye Denies: Hx Hearing Aid, Hx Hearing Problem Opthamlomology History: Reports: Hx Cataracts - BILAT, Hx Contacts or Glasses - READING, Other Sensory Impairments - pressure behind right eye Psychiatric History: Reports: Hx Anxiety - NO MEDS, Hx Depression - NO MEDS - Surgical History Surgery Procedure, Year, and Place: cholecystectomy [place] [facility] [place] [facility] [place] [facility] LEFT EYE SCAR TISSUE REMOVAL 04/22 [facility] REPAIR RIGHT MACULAR HOLE 2012 Hx Anesthesia Reactions: No - Immunization History Date of Tetanus Vaccine: unsure Date of Influenza Vaccine: 2011 Infectious Disease History: No Infectious Disease History: Denies: Traveled Outside the [place] in Last 30 Days - Family History Known Family History: Positive: Diabetes Negative: Blood Disorder Family History: Renal Failure, CVA, thyroid dz. - Social History Alcohol Use: None Hx Substance Use: No Substance Use Type: Reports: None Substance Use Comment - Amount & Last Used: percocet Hx Tobacco Use: Yes Smoking Status (MU): Former Smoker Type: Cigarettes Have You Smoked in the Last Year: No Review of Systems Positive: Chest Pain - pain radiates into anterior chest Positive: Shortness Of Breath Positive: Abdominal Pain - epigastric, Other - NEGATIVE: changes in BM, decreased appetite Positive: other - NEGATIVE: changes in urination Positive: Other - abd pain radiates to right flank and low back All Other Systems Reviewed And Are Negative: Yes Physical Exam - Summary Physical Exam Summary: Appearance: The patient is well-nourished in no acute distress and in no acute pain. Skin: The skin is warm and dry and skin color reflects adequate perfusion. HEENT: The head is normocephalic and atraumatic. The pupils are equal and reactive. The conjunctivae are clear and without drainage. Nares are patent and without drainage. Mouth reveals moist mucous membranes and the throat is without erythema and exudate. The external ears are intact. The ear canals are patent and without drainage. The tympanic membranes are intact. Neck: The neck is supple with full range of motion and non-tender. There are no carotid bruits. There is no neck vein distension. Respiratory: Chest is non-tender. Lungs are clear to auscultation and breath sounds are symmetrical and equal. Cardiovascular: Heart is regular rate and rhythm. There is no murmur or rub auscultated. There is no peripheral edema and pulses are symmetrical and equal. Abdomen: The abdomen is soft and tender in the epigastrium. There are normal bowel sounds heard in all four quadrants and there is no organomegaly palpated. Musculoskeletal: There is no back tenderness noted. Extremities are non-tender with full range of motion. There is good capillary refill. There is no peripheral edema or calf tenderness elicited. Neurological: Patient is alert and oriented to person, place and time. The patient has symmetrical motor strength in all four extremities. Cranial nerves are grossly intact. Deep tendon reflexes are symmetrical and equal in all four extremities. Psychiatric: The patient has an appropriate affect and does not exhibit any anxiety or depression. Triage Information Reviewed: Yes Vital Signs On Initial Exam: Initial Vitals Temp Pulse Resp BP Pulse Ox 97.3 F 81 18 117/72 99 01/17/18 12:32 01/17/18 12:32 01/17/18 12:32 01/17/18 12:32 01/17/18 12:32 Vital Signs Reviewed: Yes Diagnostics - Vital Signs Vital Signs Temp Pulse Resp BP Pulse Ox 01/17/18 12:32 97.3 F 81 18 117/72 99 - Laboratory Lab Statement: Any lab studies that have been ordered have been reviewed, and results considered in the medical decision making process. Re-Evaluation - Re-Evaluation First Eval Re-Evaluation Time: 14:25 Change: Improved Comment: The patient states the medication helped. She will be discharged home. Abdominal Pain Fem Course/Dx - Course Course Of Treatment: Ms. Trujillo presented with a complaint of intermittent episodes of epigastric pain for the last week or so. She has it when she presents. She is nontoxic in appearance and her vitals were stable. She was tender in the epigastrium. She is having insurance difficulties and has not taken her ranitidine for 2 weeks which she normally takes for GERD. She was given sucralfate here and got complete relief of her epigastric pain. The best I can do is write prescriptions for her, I cannot solve her insurance problems but encouraged her to get [id number] Pepcid if she needed to. Otherwise she needs to follow up with her PCP and her MAINTENA[employer]CE [employer] doctor. She is 15 weeks - Diagnoses Provider Diagnoses: GERD (gastroesophageal reflux disease) Discharge - Sign-Out/Discharge Documenting (check all that apply): Patient Departure - Patient will be discharged home. - Discharge Plan Condition: Stable Disposition: HOME Prescriptions: Cimetidine [Tagamet Hb] 400 mg PO BID #40 tablet Patient Education Materials: Gastroesophageal Reflux Disease (ED) Referrals: Stephanie Umana, MANAGER PROJECT MANAGEMENT [Primary Care Provider] - 3 Days Additional Instructions: Please take medication as prescribed. Follow up with your primary care provider in 2-3 days. Return to the emergency department in any new or worsening symptoms occur. - Billing Disposition and Condition Condition: STABLE Disposition: Home - Attestation Statements Document Initiated by Fidel: Yes Documenting Scribe: Khloe Gonzalez Provider For Whom Fidel is Documenting (Include Credential): Dr. Michael Joe MD Scribe Attestation: Khloe Rasheed scribed for Dr. Michael Joe MD on 01/17/18 at 1558. Scribe Documentation Reviewed: Yes Provider Attestation: The documentation as recorded by the Khloe moser accurately reflects the service I personally performed and the decisions made by me, Dr. Michael Joe MD
[2018-01-17 14:39] VITALS: BP 112/67
== END 2018-01-17 14:37 | disposition home or self-care (01) ==
LOC: ED 12:24
DX: O26.892 Other specified pregnancy related conditions, second trimester (principal); K21.9 Gastro-esophageal reflux disease without esophagitis; Z87.891 Personal history of nicotine dependence; E78.00 Pure hypercholesterolemia, unspecified; O24.112 Pre-existing type 2 diabetes mellitus, in pregnancy, second trimester; E11.9 Type 2 diabetes mellitus without complications; Z3A.15 15 weeks gestation of pregnancy
CPT/HCPCS: 99282; A9270-GY

== ENCOUNTER 2018-01-19 02:04 | Emergency (ER) | payer OTHER ==
[2018-01-19 02:45] LABS: Urine Appearance Clear; Urine Blood Negative (Negative); Urine Color Yellow; Urine Ketones Negative (Negative); Urine Protein Negative (Negative); Urine Specific Gravity 1.023 (1.010-1.030); Urine Urobilinogen Positive (Negative)
--- NOTE | 2018-01-19 02:53 | ED ---
- HPI Summary HPI Summary: This patient is a 42 year old F presenting to [facility] with a chief complaint of cramping during . Pt is 15 week and is having camping that radiates into her back and vagina. The patient rates the pain 8/10 in severity. Patient denies vaginal bleeding and discharge. Pt was recently seen at [facility] and she states she previously had twins but one had a demise. She has a f/ u appointment in 2 days. - History of Current Complaint Chief Complaint: EDOBProblems Stated Complaint: 15 WEEKS PREG/CRAMPING Time Seen by Provider: 01/19/18 02:15 Hx Obtained From: Patient Chief Complaint: Concern for Demise, Pain Onset/Duration: Still Present Timing: Constant Severity: Moderate Current Severity: Moderate Pain Intensity: 8 Location of Pain: Diffuse Associated Signs and Symptoms: Negative: Vaginal Bleeding or Discharge - Assessment Hx Now: Yes Hx Hysterectomy: No - Allergies/Home Medications Allergies/Adverse Reactions: Allergies Allergy/AdvReac Type Severity Reaction Status Date / Time aspirin Allergy Severe See Comment Verified 01/19/18 02:08 Iodinated Contrast- Oral and Allergy Severe Swelling Verified 01/19/18 02:08 IV Dye Of Face,Lips,& Throat povidone-iodine Allergy Severe Swelling Verified 01/19/18 02:08 [From Betadine] Of Face,Lips,& Throat shellfish derived Allergy Severe Swelling Verified 01/19/18 02:08 Of Face,Lips,& Throat soap [From Betadine] Allergy Severe Swelling Verified 01/19/18 02:08 Of Face,Lips,& Throat PMH/Surg Hx/FS Hx/Imm Hx Endocrine/Hematology History: Reports: Hx Diabetes, Hx Anemia - HX OF WHEN , Other Endocrine/Hematological Disorders - obesity - s/p gastric bypass surgery Cardiovascular History: Reports: Hx Hypercholesterolemia - statin Denies: Hx Myocardial Infarction - Present in EMR PMHx, but pt denies and report negative stress test. Respiratory History: Reports: Hx Chronic Obstructive Pulmonary Disease (COPD), Hx Sleep Apnea GI History: Reports: Hx Gastroesophageal Reflux Disease Musculoskeletal History: Reports: Hx Arthritis - BACK, Hx Back Problems Sensory History: Reports: Hx Cataracts - BILAT, Hx Contacts or Glasses - READING , Other Sensory Impairments - pressure behind right eye Denies: Hx Hearing Aid, Hx Hearing Problem Opthamlomology History: Reports: Hx Cataracts - BILAT, Hx Contacts or Glasses - READING, Other Sensory Impairments - pressure behind right eye Psychiatric History: Reports: Hx Anxiety - NO MEDS, Hx Depression - NO MEDS - Surgical History Surgery Procedure, Year, and Place: cholecystectomy 2008 [facility] [place] [facility] [place] [facility]2014 [facility] LEFT EYE SCAR TISSUE REMOVAL 04/22 [facility] REPAIR RIGHT MACULAR HOLE 2012 Hx Anesthesia Reactions: No - Immunization History Date of Tetanus Vaccine: unsure Date of Influenza Vaccine: 2011 Immunizations Up to Date: Yes Infectious Disease History: No Infectious Disease History: Denies: Traveled Outside the [place] in Last 30 Days - Family History Known Family History: Positive: Diabetes Negative: Blood Disorder Family History: Renal Failure, CVA, thyroid dz. - Social History Alcohol Use: None Hx Substance Use: No Substance Use Type: Reports: None Substance Use Comment - Amount & Last Used: percocet 5/325 Hx Tobacco Use: Yes Smoking Status (MU): Former Smoker Type: Cigarettes Have You Smoked in the Last Year: No Review of Systems Positive: Abdominal Pain Genitourinary: Negative - vaginal bleeding Negative: discharge All Other Systems Reviewed And Are Negative: Yes Physical Exam - Summary Physical Exam Summary: VITAL SIGNS: Reviewed. GENERAL: Patient is a well-developed and morbidly obese female who is lying comfortable in the stretcher. Patient is not in any acute respiratory distress. HEAD AND FACE: No signs of trauma. No ecchymosis, hematomas or skull depressions. No sinus tenderness. EYES: PERRLA, EOMI x 2, No injected conjunctiva, no nystagmus. EARS: Hearing grossly intact. Ear canals and tympanic membranes are within normal limits. MOUTH: Oropharynx within normal limits. NECK: Supple, trachea is midline, no adenopathy, no JVD, no carotid bruit, no c- spine tenderness, neck with full ROM. CHEST: Symmetric, no tenderness at palpation LUNGS: Clear to auscultation bilaterally. No wheezing or crackles. CVS: Regular rate and rhythm, S1 and S2 present, no murmurs or gallops appreciated. ABDOMEN: Soft, non-tender. No signs of distention. No rebound no guarding, and no masses palpated. Bowel sounds are normal. EXTREMITIES: FROM in all major joints, no edema, no cyanosis or clubbing. NEURO: Alert and oriented x 3. No acute neurological deficits. Speech is normal and follows commands. SKIN: Dry and warm Bed side US reveals movement and heartbeat. - Physical Exam Triage Information Reviewed: Yes Vital Signs Reviewed: Yes Diagnostics - Vital Signs Vital Signs Temp Pulse Resp BP Pulse Ox 01/19/18 02:05 97.9 F 78 20 127/69 98 - Laboratory Result Diagrams: 01/19/18 02:44 01/19/18 02:44 Lab Statement: Any lab studies that have been ordered have been reviewed, and results considered in the medical decision making process. Re-Evaluation - Re-Evaluation First Eval Re-Evaluation Time: 03:48 Change: Improved Comment: Pt is no longer having cramps. Course/Dx - Course Assessment/Plan: This patient is a 42 year old F presenting to [facility] with a chief complaint of cramping during . Pt is 15 week and is having camping that radiates into her back and vagina. The patient rates the pain 8/10 in severity. Patient denies vaginal bleeding and discharge. Pt was recently seen at [facility] and she states she previously had twins but one had a demise. She has a f/u appointment in 2 days. Bloodwork obtained. In the ED course the patient was given a lactated ringers bag. US showed movement and heartbeat. Patient will be discharged and follow up from OB. She has an appointment Thursday. The patient is agreeable with this plan. - Diagnoses Provider Diagnoses: Pelvic cramping, Discharge - Sign-Out/Discharge Documenting (check all that apply): Patient Departure - Discharge Plan Condition: Stable Disposition: HOME Patient Education Materials: (ED) Referrals: Stephanie Umana, FOAM MOLDER [Primary Care Provider] - Additional Instructions: Follow up with you OB as planned. RETURN TO THE EMERGENCY DEPARTMENT FOR CHANGING OR WORSENING SYMPTOMS - Attestation Statements Document Initiated by Scribe: Yes Documenting Scribe: Jamal Urias Provider For Whom Fidel is Documenting (Include Credential): Sasha Loja MD Scribe Attestation: Jamal Rasheed , haleyibed for Sasha Loja MD on 01/19/18 at 0349.
[2018-01-19 02:58] LABS: ABS Basophils 0 10^3/ul (0-0.2); ABS Eosinophils 0.1 10^3/ul (0-0.6); ABS Monocytes 0.8 10^3/ul (0-0.8); ABS Neutrophils 5.4 10^3/ul (1.5-7.7); ABS Nucleated RBC 0 10^3/ul; Eosinophil % 1.7 % (0-6); Hematocrit 36 % (35-47); Hemoglobin 12.4 g/dl (12.0-16.0); Lymphocyte % 24.1 % (25-47); Mean Corpuscular HGB Conc 35 g/dl (31-36); Mean Corpuscular Hemoglobin 30 pg (27-31); Mean Corpuscular Volume 86 fL (80-97); Mean Platelet Volume 8.1 fL (7.4-10.4); Nucleated Red Blood Cells % 0; Platelet Count 218 10^3/ul (150-450); Red Blood Count 4.18 10^6/ul (4.00-5.40); Red Cell Distribution Width 13 % (10.5-15); White Blood Count 8.3 10^3/ul (3.5-10.8)
[2018-01-19 04:10] VITALS: BP 124/79
== END 2018-01-19 04:09 | disposition home or self-care (01) ==
LOC: ED 02:04
DX: O26.892 Other specified pregnancy related conditions, second trimester (principal); R10.9 Unspecified abdominal pain; Z3A.15 15 weeks gestation of pregnancy; E78.00 Pure hypercholesterolemia, unspecified; Z90.49 Acquired absence of other specified parts of digestive tract; Z90.89 Acquired absence of other organs; Z88.6 Allergy status to analgesic agent; Z91.041 Radiographic dye allergy status; Z91.013 Allergy to seafood; Z87.891 Personal history of nicotine dependence
CPT/HCPCS: 36415; 80053; 81003; 83735; 84702; 85025; 96360; 99282

== ENCOUNTER 2018-03-21 16:18 | Emergency (ER) | payer OTHER ==
--- OUTSIDE RECORDS SUMMARY | 2018-03-21 16:25 | XMS REPORT | Continuity of Care Document ---
:1975 External Reference #:[id number] Author Name Bronson Agni Care Team Providers Name Role Phone Stephanie Umana NP Primary Care Physician Unavailable Payers Type Date Identification Numbers Payment Provider Subscriber Policy Number: [id number] [employer] Medicaid Angi Trujillo PayID: [id number] [address] [address] [place] [address] Advance Directives Description No Information Available Problems Date Description Provider Status Onset: 06/28/2015 Obstructive sleep apnea syndrome Thuy Fuentes MD Active Onset: 06/28/2015 Morbid obesity Thuy Fuentes MD Active Family History Date Family Member(s) Problem(s) Comments General Both sides DM,heart disease,strokes,mental issues,Etoh/drug addiction General Epilepsy General Diabetes General Seizure Disorder Father Hypertension Father Cholesterol Cholesterol Mother Mother Diabetes Mother Heart Disease Siblings 2 2 biological sisters, 1 sister with HTN, 1 sister with mental health issues and arthritis Social History Type Date Description Comments Sex Unknown Lives With Family Occupation Not working ETOH Use Denies alcohol use recovering alcoholic Tobacco Use Start: Unknown Patient is a former Quit 1999 End: Unknown smoker Recreational Drug Use Denies Drug Use Smoking Status Reviewed: 02/22/18 Patient is a former Quit 1999 smoker Exercise Type/Frequency Exercises regularly Walks daily 2.5 miles per day. Allergies, Adverse Reactions, Alerts Date Description Reaction Status Severity Comments 12/24/2012 Iodine Active 12/24/2012 Shellfish-derived Products Active 06/28/2015 Betadine Active 01/25/2018 Aspirin Active bariatric pouch Medications Medication Date Status Form Strength Qnty SIG Indications Ordering Provider Freestyle Jean 01/25/ Active Device 1unit use at E11.65 Chang 14 2018 s least 4 MD Tonya Day/[place] times daily h Monitoring with sensor System Freestyle Jean 01/25/ Active Misc 2unit place one E11.65 Chang 14 2017 s sensor MD Tonya Day/Sensor/[place] every 10-14 h Monitoring days System Colace 00/00/ Active Capsules 100mg once daily Unknown 0000 0000/ Active Tablets Once daily Unknown Formula 0000 Sertraline HCL / Active Tablets 50mg once daily Unknown 0000 True Metrix 00/ Active Device 1 unit Unknown Meter 0000 Admelog // Active Solution 100Unit/M 30ml sliding Unknown 0000 L scale with meals, max dose 30 units daily. Insulin / Active Misc 31G X use daily Unknown Syringe/Needle 0000 07/22" 0.3 as directed 0.3ML/31G X ML 07/22" Basaglar / Active Solution 100Unit/M 30 units at Unknown Kwikpen 0000 Pen-Inject L twice daily Novofine / Active Misc 32G X 6 use every Unknown 0000 mm day or as directed Cimetidine / Active Tablets 200mg twice daily Unknown 0000 Marvell / Active Solution 275mg/1.1 once weekly Unknown 0000 Auto-Inject ML Gabapentin 03/10/ Hx Capsules 300mg 90cap 1 in the Unknown 2016 - s a.m. and 2 07/13/ at night 2018 Furosemide / Hx Tablets 20mg 30tab 1 po qam Unknown 0000 - s prn 2017 Oxycodone/Aceta / Hx Tablets 5-325mg 60tab 1-2 tabs po Unknown minophen 0000 - s q 4 hrs prn 05/25/ pain 2018 Ventolin HFA / Hx Aerosol [...] Solution 0.1% Unknown 0000 - 2017 Spiriva / Hx Capsules 18mcg 30cap 1 Unknown Handihaler 0000 - s inhalation 05/25/ po qam 2018 Simvastatin 00/00/ Hx Tablets 20mg 90tab 1 po qd Unknown 0000 - s 2017 Flexeril 0000/ Hx Tablets 5mg 30tab 1 tablet Unknown 0000 - s three times 05/25/ a day as 2018 needed Omeprazole 00/ Hx Capsules DR 20mg 30cap 1 po qd Unknown 0000 - s 2017 Celexa / Hx Tablets 20mg 30tab 1 po qd Unknown 0000 - s 2017 Metformin HCL / Hx Tablets 1000mg 180ta 1 po bid Unknown 0000 - bs 2017 Ibuprofen / Hx Tablets 600mg 60tab 1 po tid Unknown 0000 - s prn 2017 Ranitidine HCL / Hx Tablets 150mg 60tab take one Unknown 0000 - s tablet by 01/16/ mouth twice 2018 a day Cosopt 0000/ Hx Solution 22.3-6.8m 1 gtt right Unknown 0000 - g/ml eye bid 2017 Novolog 0000/ Hx Solution 100Unit/M 1bott 30 units am Unknown 0000 - L le 34 units with dinner 2017 Humulin R U-500 0000/ Hx Solution 500Unit/M 20uni 40 units Unknown (Concentrated) 0000 - L ts bid 2017 Acetazolamide / Hx Tablets 250mg 90tab 1/2 po qid Unknown 0000 - s 2017 Humalog Mix / Hx Suspension (50-50)10 Based Off Unknown 50/50 0000 - 0Unit/ML Of Sliding 2018 Lantus Solostar 0000/ Hx Solution 100Unit/M Once A Day Unknown 0000 - Pen-Inject L 50 Units 2017 Immunizations Description No Information Available Vital Signs Date Vital Result Comment 02/22/2018 12:52pm Height 65 inches 5'5" Weight 241.00 lb w/shoes Heart Rate 97 /min BP Systolic Sitting 139 mmHg BP Diastolic Sitting 73 mmHg BMI (Body Mass Index) 40.1 kg/m2 01/25/2018 1:39pm Height 65 inches 5'5" Weight 241.00 lb w/o shoes Heart Rate 85 /min BP Systolic Sitting 107 mmHg BP Diastolic Sitting 67 mmHg BMI (Body Mass Index) 40.1 kg/m2 07/14/2017 9:27am Height 65 inches 5'5" Weight 235.00 lb Heart Rate 80 /min BP Systolic Sitting 112 mmHg BP Diastolic Sitting 64 mmHg Respiratory Rate 16 /min BMI (Body Mass Index) 39.1 kg/m2 05/26/2017 10:38am Height 65 inches 5'5" Weight 233.25 lb Heart Rate 76 /min BP Systolic Sitting 132 mmHg BP Diastolic Sitting 72 mmHg Respiratory Rate 16 /min BMI (Body Mass Index) 38.8 kg/m2 03/11/2016 9:28am Height 65 inches 5'5" Weight 257.00 lb Heart Rate 83 /min BP Systolic Sitting 132 mmHg BP Diastolic Sitting 76 mmHg Respiratory Rate 16 /min O2 % BldC Oximetry 97 % BMI (Body Mass Index) 42.8 kg/m2 09/07/2015 10:43am Height 66 inches 5'6" Weight 256.00 lb Heart Rate 64 /min BP Systolic Sitting 126 mmHg BP Diastolic Sitting 74 mmHg Respiratory Rate 18 /min O2 % BldC Oximetry 98 % BMI (Body Mass Index) 41.3 kg/m2 06/28/2015 10:10am Height 65 inches 5'5" Weight 263.00 lb Heart Rate 70 /min BP Systolic Sitting 122 mmHg BP Diastolic Sitting 70 mmHg Respiratory Rate 16 /min O2 % BldC Oximetry 98 % BMI (Body Mass Index) 43.8 kg/m2 Neck Circumference in inches 16.25 Results Test Date Facility Test Result H/L Range Note Laboratory test 02/22/2018 [facility] Hemoglobin A1c 6.2 5-7 finding Laboratory test 01/25/2018 [facility] Hemoglobin A1c 5.6 5-7 finding Laboratory test 01/25/2018 [facility] Glucose Random 115 finding Laboratory test 06/11/2017 [facility] HCG 7.21 mIU/mL [address] [place] [address] [phone] Urine Culture & 12/06/2010 [facility] Urine Culture NF1 [address] [place] [address] [phone] 1 <5.0 Negative 5.0 - 25.0 Indeterminate (Repeat testing recommended after 72 hours) >25.0 Positive Perimenopausal women can display HCG levels of up to 20 mIU/mL 2 SPECIMEN CONTAINS NORMAL URETHRAL OR PERINEAL KATHRYN AND DOES NOT SUGGEST URINARY TRACT INFECTION Procedures Date Code Description Status 08/14/2015 86360 Polysomnography Sleep Staging 4+ Parameters W/Cpap Completed 12/04/2009 07038 Treadmill Interp/Report Only Completed 12/04/2009 18245 Stress Test Supervsn W/Out I/R Completed 07/19/2009 19178 EKG Tracing & Interpretation Completed 09/21/2007 11755 Color Flow Doppler/Interp & Reprt Completed 09/21/2007 57184 Pulse Wave/Continuous-Interp.RPT Completed 09/21/2007 87544 Pulse Wave/Continuous-Interp.RPT Completed 09/21/2007 06987 Echocardiogram Completed 09/21/2007 79323 Treadmill Interp/Report Only Completed 09/21/2007 12655 Treadmill Interp/Report Only Completed 09/21/2007 87106 Stress Test Supervsn W/Out I/R Completed 09/21/2007 95800 Stress Test Supervsn W/Out I/R Completed Encounters Type Date Location Provider Dx Diagnosis Office Visit 01/25/2018 [facility] [place] [facility] Bernardo Castaneda MD Z98.84 Bariatric 2:00p [facility] surgery status Z79.4 shelter (current) use of insulin Z3A.15 15 weeks gestation of O24.112 Pre-existing type 2 diabetes, in , second trimester E11.65 Type 2 diabetes mellitus with hyperglycemia [place] S06.0x0D Concussion without 9:30a Neurologic Cristiane Craft loss of [facility] consciousness, subs encntr Office Visit 05/26/2017 [place] Louis Goldberg M54.2 Cervicalgia 10:45a Neurologic Cristiane Craft [facility] R41.3 Other amnesia S06.0x0D Concussion without loss of consciousness, subs encntr G44.319 Acute post-traumatic headache, not intractable Office Visit 03/11/2016 9:30a Pulmonology And Thuy G47.33 Obstructive sleep Sleep Services Of MD Gina apnea (adult) [facility] (pediatric) Office Visit 09/07/2015 10:45a Pulmonology And Thuy G47.33 Obstructive sleep [facility] Gina apnea (adult) [facility] (pediatric) Office Visit 06/28/2015 10:15a Pulmonology And Thuy G47.33 Obstructive sleep [facility] Gina apnea (adult) [facility] (pediatric) E66.01 Morbid (severe) obesity due to excess calories Office Visit 07/19/2009 8:30a [facility] Qutaybeh S. 786.50 Pain Chest Cristiane Portillo Unspec 272.4 Hyperlipidemia Other Unspec Plan of Treatment Future Appointment(s):03/25/2018 11:00 am - Bernardo Castaneda MD at [facility]02/22/2018 - Bernardo Castaneda MDO24.112 Pre-existing type 2 diabetes mellitus, in , secondFollow up:1 monthInstructions:1. Reduce Basaglar to 27 units twice daily. 2. If you notice overnight blood glucose less than 70mg/dL, reduce Basaglar to 24 units twice daily. 3. Change Admelog dosing , as follows: - 1 unit for awmgd6y carbohydrate eaten - add 2 units if blood glucose is more than 150mg/dL before you eat - add 4 units if blood glucose is more than 200mg/dL before you eat - call office if you are experiencing pre- meal blood glucose more than 200mg/dL - call office if you are experiencing daytime blood glucose lessthan 70mg/dL 4. Upload your glucose data to [employer]. 5. Feel free to email your glucose reports to our office ([email or web address]). 6. Return in 1 month for a follow-up visit.
--- NOTE | 2018-03-21 16:38 | ED ---
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 She states in the ED parking lot, her glucose was 268. When she was home, she was standing in the kitchen, when suddenly a "sheet of black" overcame her and she had a near-syncope. She grabbed onto the sink and did not fall, but she did hit her belly against the counter. She states her is high-risk, she sees [facility] in [place]. She denies n/v, vaginal bleeding and discharge. The abd pain is described as cramping. She has not felt the baby move since this AM, which she states is normal. - History Of Current Complaint Chief Complaint: EDDiabeticProb Time Seen by Provider: 03/21/18 16:34 Hx Obtained From: Patient Hx Last Menstrual Period: 7 years ago Onset/Duration: Sudden Onset, Still Present - ` Timing: Constant Severity Initially: Moderate Severity Currently: Moderate Associated Signs & Symptoms: Abdominal Pain - Allergies/Home Medications Allergies/Adverse Reactions: Allergies Allergy/AdvReac Type Severity Reaction Status Date / Time aspirin Allergy Severe See Comment Verified 03/21/18 16:23 Iodinated Contrast- Oral and Allergy Severe Swelling Verified 03/21/18 16:23 IV Dye Of Face,Lips,& Throat povidone-iodine Allergy Severe Swelling Verified 03/21/18 16:23 [From Betadine] Of Face,Lips,& Throat shellfish derived Allergy Severe Swelling Verified 03/21/18 16:23 Of Face,Lips,& Throat soap [From Betadine] Allergy Severe Swelling Verified 03/21/18 16:23 Of Face,Lips,& Throat Home Medications: Home Medications Cimetidine [Tagamet Hb] 200 mg PO BID 03/21/18 [History Confirmed 03/21/18] Hydroxyprogesterone Caproat/Pf [[place] 275 mg/1.1 ml Autoinjct] 275 mg SQ WEEKLY 03/21/18 [History Confirmed 03/21/18] PMH/Surg Hx/FS Hx/Imm Hx Previously Healthy: No Endocrine/Hematology History: Reports: Hx Diabetes, Hx Anemia - HX OF WHEN , Other Endocrine/Hematological Disorders - obesity - s/p gastric bypass surgery Cardiovascular History: Reports: Hx Hypercholesterolemia - statin Denies: Hx Myocardial Infarction - Present in EMR PMHx, but pt denies and report negative stress test. Respiratory History: Reports: Hx Chronic Obstructive Pulmonary Disease (COPD), Hx Sleep Apnea GI History: Reports: Hx Gastroesophageal Reflux Disease Musculoskeletal History: Reports: Hx Arthritis - BACK, Hx Back Problems Sensory History: Reports: Hx Cataracts - BILAT, Hx Contacts or Glasses - READING , Other Sensory Impairments - pressure behind right eye Denies: Hx Hearing Aid, Hx Hearing Problem Opthamlomology History: Reports: Hx Cataracts - BILAT, Hx Contacts or Glasses - READING, Other Sensory Impairments - pressure behind right eye Psychiatric History: Reports: Hx Anxiety - NO MEDS, Hx Depression - NO MEDS - Surgical History Surgery Procedure, Year, and Place: cholecystectomy 2008 [facility]. appendectomy [facility] [place] [facility] [place] 07/2014 [facility] LEFT EYE SCAR TISSUE REMOVAL 04/22 [facility] REPAIR RIGHT MACULAR HOLE 2012 Hx Anesthesia Reactions: No - Immunization History Date of Tetanus Vaccine: unsure Date of Influenza Vaccine: 2011 Infectious Disease History: No Infectious Disease History: Denies: Traveled Outside the [place] in Last 30 Days - Family History Known Family History: Positive: Diabetes Negative: Blood Disorder Family History: Renal Failure, CVA, thyroid dz. - Social History Occupation: Unemployed Lives: With Family Alcohol Use: None Hx Substance Use: No Substance Use Type: Reports: None Substance Use Comment - Amount & Last Used: percocet 5/325 Hx Tobacco Use: Yes Smoking Status (MU): Former Smoker Type: Cigarettes Have You Smoked in the Last Year: No Review of Systems Positive: Abdominal Pain. Negative: Vomiting, Nausea Negative: discharge - neg: vaginal bleeding/discharge Positive: Syncope - near-syncope All Other Systems Reviewed And Are Negative: Yes Physical Exam - Summary Physical Exam Summary: VITAL SIGNS: Reviewed. GENERAL: Patient is a well-developed and nourished FEMALE who is lying comfortable in the stretcher. Patient is not in any acute respiratory distress. HEAD AND FACE: No signs of trauma. No ecchymosis, hematomas or skull depressions. No sinus tenderness. EYES: PERRLA, EOMI x 2, No injected conjunctiva, no nystagmus. EARS: Hearing grossly intact. Ear canals and tympanic membranes are within normal limits. MOUTH: Oropharynx within normal limits. NECK: Supple, trachea is midline, no adenopathy, no JVD, no carotid bruit, no c- spine tenderness, neck with full ROM. CHEST: Symmetric, no tenderness at palpation LUNGS: Clear to auscultation bilaterally. No wheezing or crackles. CVS: Regular rate and rhythm, S1 and S2 present, no murmurs or gallops appreciated. ABDOMEN: Soft, non-tender. No signs of distention. No rebound, no guarding, and no masses palpated. Bowel sounds are normal. EXTREMITIES: FROM in all major joints, no edema, no cyanosis or clubbing. NEURO: Alert and oriented x 3. No acute neurological deficits. Speech is normal and follows commands. SKIN: Dry and warm Triage Information Reviewed: Yes Vital Signs On Initial Exam: Initial Vitals Temp Pulse Resp BP Pulse Ox 97.5 F 108 19 117/88 99 03/21/18 16:20 03/21/18 16:20 03/21/18 16:20 03/21/18 16:20 03/21/18 16:20 Vital Signs Reviewed: Yes Diagnostics - Vital Signs Vital Signs Temp Pulse Resp BP Pulse Ox 03/21/18 16:20 97.5 F 108 19 117/88 99 - Laboratory Result Diagrams: 03/21/18 17:03 03/21/18 17:03 Lab Statement: Any lab studies that have been ordered have been reviewed, and results considered in the medical decision making process. 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 She states in the ED parking lot, her glucose was 268. When she was home, she was standing in the kitchen, when suddenly a "sheet of black" overcame her and she had a near-syncope. She grabbed onto the sink and did not fall, but she did hit her belly against the counter. She states her is high-risk, she sees [facility] in [place]. She denies n/v, vaginal bleeding and discharge. The abd pain is described as cramping. She has not felt the baby move since this AM, which she states is normal. Blood work without any significant abnormality except for slight anemia hemoglobin is 11 hematocrit is 32 glucose is 189 magnesium is 1.8 and CRP is 16.6. Urinalysis is negative for UTI and urine toxicology is negative. In the ED course the patient was given IV fluids and insulin for the hyperglycemia and Zofran for the nausea and vomiting. I discussed the case with Dr. Justice from [facility] and he recommends for the patient to the epigastric ultrasound, BK, and Rh blood test. At this time the patient is awaiting the ultrasound and blood test results. The patient will be signed out to Dr. Loja at shift change. He will follow-up the ultrasound results, blood test results and discuss the case with Dr. Suarez for final disposition on the patient. At this time the patient is hemoglobin after stable alert and oriented 3, and she doesnt have any other complaints. - Diagnoses Provider Diagnoses: , Trauma during - Physician Notifications Discussed Care Of Patient With: Heron Suarez - OB Time Discussed With Above Provider: 18:00 Instructed by Provider To: Other - Recommends pelvic U/S and Kleihauer-Betke test Discharge - Sign-Out/Discharge Documenting (check all that apply): Sign-Out Patient Signing out patient TO: Sasha Loja - at shift change pending U/S - Discharge Plan Condition: Stable Disposition: HOME Patient Education Materials: Trauma During (ED) Referrals: Stephanie Umana, TEMPLATE WORKER [Primary Care Provider] - 3 Days Additional Instructions: FOLLOW UP WITH YOUR [facility]CH[facility]ECT IN [place] TOMORROW. RETURN TO THE ED FOR ANY WORSENING OR NEW SYMPTOMS. Follow up with your primary care provider in 3 days. - Attestation Statements Document Initiated by Fidel: Yes Documenting Scribe: Demetris Galindo Provider For Whom Fidel is Documenting (Include Credential): Dr. Madhu Diana MD Scribe Attestation: I, whitney Menendez for Dr. Madhu Diana MD on 03/22/18 at 1722. Scribe Documentation Reviewed: Yes Provider Attestation: The documentation as recorded by the Demetris moser accurately reflects the service I personally performed and the decisions made by me, Dr. Madhu Diana MD Status of Scribe Document: Viewed
[2018-03-21] MEDS: NS 0.9% 1000 ML* 2,000 ML IV ONE (17:02)
[2018-03-21 17:23] LABS: ABS Basophils 0 10^3/ul (0-0.2); ABS Eosinophils 0.1 10^3/ul (0-0.6); ABS Lymphocytes 1.3 10^3/ul (1.0-4.8); ABS Monocytes 0.6 10^3/ul (0-0.8); ABS Neutrophils 6.7 10^3/ul (1.5-7.7); ABS Nucleated RBC 0 10^3/ul; Eosinophil % 1.2 %; Hematocrit 32 % (35-47); Lymphocyte % 14.9 %; Mean Corpuscular HGB Conc 35 g/dl (31-36); Mean Corpuscular Hemoglobin 29 pg (27-31); Mean Corpuscular Volume 84 fL (80-97); Mean Platelet Volume 8.4 fL (7.4-10.4); Nucleated Red Blood Cells % 0; Platelet Count 231 10^3/ul (150-450); Red Blood Count 3.79 10^6/ul (4.00-5.40); Red Cell Distribution Width 13 % (10.5-15); White Blood Count 8.7 10^3/ul (3.5-10.8)
[2018-03-21 17:24] LABS: Urine Appearance Clear; Urine Bilirubin Negative (Negative); Urine Blood Negative (Negative); Urine Color Straw; Urine Glucose 2+(150 mg/dL) (Negative); Urine Ketones Negative (Negative); Urine Nitrite Negative (Negative); Urine Protein Negative (Negative); Urine Specific Gravity 1.004 (1.010-1.030); Urine Urobilinogen Negative (Negative)
[2018-03-21 17:43] LABS: ALT 16 U/L (7-52); AST 16 U/L (13-39); Albumin 3.5 g/dL (3.2-5.2); Albumin/Globulin Ratio 1.2 (1-3); Alkaline Phosphatase 50 U/L (34-104); Anion Gap 7 mmol/L (2-11); BUN/Creatinine Ratio 16.9 (8-20); Blood Urea Nitrogen 10 mg/dL (6-24); C Reactive Protein 16.64 mg/L (<8.01); CO2 Carbon Dioxide 26 mmol/L (22-32); Calcium 9.2 mg/dL (8.6-10.3); Chloride 104 mmol/L (101-111); Creatine Kinase 73 U/L (10-223); EGFR Non-African American 112.3 (>60); Globulin 2.9 g/dL (2-4); Glucose 189 mg/dL (70-100); Magnesium 1.8 mg/dL (1.9-2.7); Potassium 3.5 mmol/L (3.5-5.0); Sodium 137 mmol/L (135-145); Total Protein 6.4 g/dL (6.4-8.9)
[2018-03-21 17:44] LABS: Barbiturates Urine Screen None Detected (None Detect); Benzodiazepine Urine Screen None Detected (None Detect); Urine Cannabinoids Screen None Detected (None Detect)
[2018-03-21 17:46] LABS: Alcohol < 10 mg/dL (<10)
[2018-03-21] MEDS ORDERED: Magnesium Oxide TAB* 400 MG PO ONE (18:33)
[2018-03-21] MEDS ORDERED: Dextrose 50% Syringe 50 ML* 25 GM/50 ML SYRINGE ONE (19:24)
[2018-03-21] MEDS ORDERED: Dextrose 50% Syringe 50 ML* 25 GM/50 ML SYRINGE IV PUSH ONE (19:26)
[2018-03-21] MEDS ORDERED: Dextrose 50% VIAL 50 ml IV ONE (19:28)
--- NOTE | 2018-03-21 19:44 | ED ---
Progress - Progress Note Progress Note: Patient was signed out from Dr. Diana upon shift change pending US and disposition. DIAG US US reveals, per radiologist, viable intrauterine with an ultrasound of age 23 weeks 4 days which correlates to an RODO of 07/14/2018. No traumatic abnormalities. ED physician has reviewed this radiology report. Re-Evaluation - Re-Evaluation First Eval Re-Evaluation Time: 19:42 Change: Unchanged Comment: Discussed results and plan of care with patient Course/Dx - Course Course Of Treatment: Patient was signed out from Dr. Diana upon shift change pending US and disposition. US reveals, per radiologist, viable intrauterine with an ultrasound of age 23 weeks 4 days which correlates to an RODO of 07/14/2018. No traumatic abnormalities. Consult with Dr. Suarez (shuttle car operator) at 1945. He reviewed the case with me. He recommends that nothing further needs to be done at this time. He communicated that the patient does not need Rhogam at this time. Patient will be discharged with follow up from her HVAC TECH. Patient is agreeable with this plan. - Diagnoses Provider Diagnoses: , Trauma during - Provider Notifications Discussed Care Of Patient With: Heron Suarez Time Discussed With Above Provider: 19:45 Instructed by Provider To: Other - Consult with Dr. Suarez (shuttle car operator) at 1945. He reviewed the case with me. He recommends that nothing further needs to be done at this time. He communicated that the patient does not need Rhogam at this time. Discharge - Sign-Out/Discharge Documenting (check all that apply): Patient Departure - Discharge home, Receiving Sign-Out Receiving patient FROM: Madhu Diana - Upon shift change pending US and disposition. - Discharge Plan Condition: Stable Disposition: HOME Patient Education Materials: Trauma During (ED) Referrals: Stephanie Umana ADJUNCT HISTORY INSTRUCTOR [Primary Care Provider] - 3 Days Additional Instructions: [facility] RETURN TO THE ED FOR ANY WORSENING OR NEW SYMPTOMS. Follow up with your primary care provider in 3 days. - Attestation Statements Document Initiated by Scribe: Yes Documenting Scribe: Valerie Cazares Provider For Whom Scribe is Documenting (Include Credential): Dr. Sasha Loja MD Scribe Attestation: I, Valerie Cazares, scribed for Dr. Sasha Loja MD on 03/21/18 at 1947. Status of Scribe Document: Ready
[2018-03-21 20:08] VITALS: BP 124/62
== END 2018-03-21 20:07 | disposition home or self-care (01) ==
LOC: ED 16:18
DX: O26.892 Other specified pregnancy related conditions, second trimester (principal); R55 Syncope and collapse; R10.9 Unspecified abdominal pain; Z3A.23 23 weeks gestation of pregnancy; Z87.891 Personal history of nicotine dependence
CPT/HCPCS: 36415; 76815; 80053; 80307; 80320; 81003; 82550; 82803; 83030; 83605; 83735; 84702; 85025; 85730; 86140; 86900; 86901; 96360; 96361; 99282; G0480

== ENCOUNTER → 2018-05-26 20:19 | Emergency (ER) | payer OTHER ==
[2018-05-26 22:52] VITALS: BP 148/86
--- NOTE | 2018-05-26 22:57 | ED ---
- HPI Summary HPI Summary: This patient is a 42 year old F presenting to ED with a chief complaint of labor since 1999 today. She states she is 33 weeks and has been having anette heath for the last month. She states she has contractions every 5 minutes, lasting about two minutes, started at 1999. Patient says her water broke while in the waiting room but didnt feel a gush come out. The patient rates the pain 7/10 in severity. Symptoms aggravated by nothing. Symptoms alleviated by nothing. - History of Current Complaint Chief Complaint: EDOBProblems Stated Complaint: 33 WKS , IN A LOT OF PAIN PER PT Hx Obtained From: Patient Onset/Duration: Started Hours Ago, Still Present Timing: Intermittent, Lasting Hours Severity: Moderate Current Severity: Moderate Pain Intensity: 7 Aggravating Factors: Nothing Alleviating Factors: Nothing - Assessment Hx Now: Yes Hx : 8 Hx Para: 3 SAB: 4 IEA: 0 Hx Hysterectomy: No - Additional Pertinent History Maternal Blood Type and Rh: A Negative - Allergies/Home Medications Allergies/Adverse Reactions: Allergies Allergy/AdvReac Type Severity Reaction Status Date / Time aspirin Allergy Severe See Comment Verified 05/26/18 20:32 Iodinated Contrast- Oral and Allergy Severe Swelling Verified 05/26/18 20:32 IV Dye Of Face,Lips,& Throat povidone-iodine Allergy Severe Swelling Verified 05/26/18 20:32 [From Betadine] Of Face,Lips,& Throat shellfish derived Allergy Severe Swelling Verified 05/26/18 20:32 Of Face,Lips,& Throat soap [From Betadine] Allergy Severe Swelling Verified 05/26/18 20:32 Of Face,Lips,& Throat PMH/Surg Hx/FS Hx/Imm Hx Endocrine/Hematology History: Reports: Hx Diabetes - type 2, insulin, Hx Anemia - HX OF WHEN , Other Endocrine/Hematological Disorders - obesity - s/p gastric bypass surgery Cardiovascular History: Reports: Hx Hypercholesterolemia - statin Denies: Hx Myocardial Infarction - Present in EMR PMHx, but pt denies and report negative stress test. Respiratory History: Reports: Hx Chronic Obstructive Pulmonary Disease (COPD), Hx Sleep Apnea GI History: Reports: Hx Gastroesophageal Reflux Disease, Other GI Disorders - S/ P gastric bypass Musculoskeletal History: Reports: Hx Arthritis - BACK, Hx Back Problems Sensory History: Reports: Hx Cataracts - BILAT, Hx Contacts or Glasses - READING , Other Sensory Impairments - pressure behind right eye Denies: Hx Hearing Aid, Hx Hearing Problem Opthamlomology History: Reports: Hx Cataracts - BILAT, Hx Contacts or Glasses - READING, Other Sensory Impairments - pressure behind right eye Psychiatric History: Reports: Hx Anxiety, Hx Depression - Surgical History Surgery Procedure, Year, and Place: cholecystectomy 2008 [facility]. appendectomy [facility] y 07/2014 [facility] LEFT EYE SCAR TISSUE REMOVAL 04/22 [facility] REPAIR RIGHT MACULAR HOLE 2012. gastric bypass Hx Anesthesia Reactions: No - Immunization History Date of Tetanus Vaccine: unsure Date of Influenza Vaccine: 2011 Infectious Disease History: No Infectious Disease History: Denies: Traveled Outside the [place] in Last 30 Days - Family History Known Family History: Positive: Diabetes Negative: Blood Disorder Family History: Renal Failure, CVA, thyroid dz. - Social History Alcohol Use: None Hx Substance Use: No Substance Use Type: Reports: None Hx Tobacco Use: Yes Smoking Status (MU): Former Smoker Type: Cigarettes Have You Smoked in the Last Year: No Review of Systems Negative: Fever Positive: other - contractions every 5 minutes, lasting about two minutes, started at 2000, water broke while in the waiting room All Other Systems Reviewed And Are Negative: Yes Physical Exam - Summary Physical Exam Summary: VITAL SIGNS: Reviewed. GENERAL: Patient is a morbidly obese FEMALE who is lying comfortable in the stretcher. Patient is not in any acute respiratory distress. HEAD AND FACE: No signs of trauma. No ecchymosis, hematomas or skull depressions. No sinus tenderness. EYES: PERRLA, EOMI x 2, No injected conjunctiva, no nystagmus. EARS: Hearing grossly intact. Ear canals and tympanic membranes are within normal limits. MOUTH: Oropharynx within normal limits. NECK: Supple, trachea is midline, no adenopathy, no JVD, no carotid bruit, no c- spine tenderness, neck with full ROM. CHEST: Symmetric, no tenderness at palpation LUNGS: Clear to auscultation bilaterally. No wheezing or crackles. CVS: Regular rate and rhythm, S1 and S2 present, no murmurs or gallops appreciated. ABDOMEN: Soft, non-tender. No signs of distention. No rebound no guarding, and no masses palpated. Bowel sounds are normal. A2, fundal level is at 32 weeks. EXTREMITIES: FROM in all major joints, no edema, no cyanosis or clubbing. NEURO: Alert and oriented x 3. No acute neurological deficits. Speech is normal and follows commands. SKIN: Dry and warm - Physical Exam Triage Information Reviewed: Yes Vital Signs On Initial Exam: Initial Vitals Temp Pulse Resp BP Pulse Ox 98.0 F 86 18 126/73 98 05/26/18 20:27 05/26/18 20:27 05/26/18 20:27 05/26/18 20:27 05/26/18 20:27 Vital Signs Reviewed: Yes Diagnostics - Vital Signs Vital Signs Temp Pulse Resp BP Pulse Ox 05/26/18 22:41 98 148/86 98 05/26/18 20:27 98.0 F 86 18 126/73 98 - Laboratory Lab Statement: Any lab studies that have been ordered have been reviewed, and results considered in the medical decision making process. Course/Dx - Course Assessment/Plan: This patient is a 42 year old F presenting to ED with a chief complaint of labor since [address] Toledo at 2252 who says to send her down to OB. Patient will be discharged to OB. Patient understands and agrees with this plan. - Differential Diagnosis/HQI/PQRI: Other: - labor - Diagnoses Provider Diagnoses: labor - Provider Notifications Discussed Care Of Patient With: Taylor Toledo Time Discussed With Above Provider: 22:52 Instructed by Provider To: Other - Consulted Dr. Toledo at 2252 who says to send her down to OB. Discharge - Sign-Out/Discharge Documenting (check all that apply): Patient Departure - discharge to OB Patient Received Moderate/Deep Sedation with Procedure: No - Discharge Plan Condition: Stable Disposition: HOME Patient Education Materials: Labor (ED) Referrals: Stephanie Umana, METAL SASH SETTER [Primary Care Provider] - Additional Instructions: GO STRAIGHT TO OB. - Billing Disposition and Condition Condition: STABLE Disposition: Home - Attestation Statements Document Initiated by Scribe: Yes Documenting Scribe: Paresh Juan Provider For Whom Scribe is Documenting (Include Credential): Sasha Loja MD Scribe Attestation: Paresh Rasheed, scribed for Sasha Loja MD on 05/27/18 at 0603. Scribe Documentation Reviewed: Yes Provider Attestation: The documentation as recorded by the scribeParesh accurately reflects the service I personally performed and the decisions made by me, Sasha Loja MD Status of Scribe Document: Viewed
== END | disposition home or self-care (01) ==
LOC: ED 20:19
DX: O60.03 Preterm labor without delivery, third trimester (principal); Z3A.33 33 weeks gestation of pregnancy; Z87.891 Personal history of nicotine dependence; E66.9 Obesity, unspecified; Z88.6 Allergy status to analgesic agent
CPT/HCPCS: 99282

== ENCOUNTER 2019-02-08 17:33 | Emergency (ER) | payer OTHER ==
--- OUTSIDE RECORDS SUMMARY | 2019-02-08 18:03 | XMS REPORT | Continuity of Care Document ---
:1975 External Reference #:[id number] Author Name Bernardo Castaneda MD (transmitted by agent of provider Kimberley Ro) Address [address] [place] [address] Care Team Providers Name Role Phone Stephanie Umana NP - Family Care Team Information Bottoming Room Inspector [phone] Problems Active Problems Provider Date Obstructive sleep apnea syndrome Thuy Fuentes MD Onset: 06/28/2015 Morbid obesity Thuy Fuentes MD Onset: 06/28/2015 Social History Type Date Description Comments Sex Unknown ETOH Use Denies alcohol use recovering alcoholic Tobacco Use Start: Unknown Patient is a former Quit 1999 End: Unknown smoker Recreational Drug Use Denies Drug Use Smoking Status Reviewed: 01/19/19 Patient is a former Quit 1999 smoker Exercise Type/Frequency Exercises regularly Walks daily 2.5 miles per day. Allergies, Adverse Reactions, Alerts Active Allergies Reaction Severity Comments Date Iodine 12/24/2012 Shellfish-derived Products 12/24/2012 Betadine 06/28/2015 Aspirin bariatric pouch 01/25/2018 Medications Active Medications SIG Qnty Indications Ordering Date Provider Admelog Solostar 10 units with 15ml E10.65 Bernardo Castaneda MD 01/19/2019 meals or as 100Unit/ML Solution directed, mdd 50 Pen-Inject units Contour Next Blood use to test blood 120units E11.649 Bernardo Castaneda MD 01/2019 Glucose Test sugar 4 times Strips daily. Eucerin Cream apply 1-2 times 454units E11.649 Bernardo Castaneda MD 10/19/2018 Cream daily to dry skin and feet Gabapentin 1 capsule by 60caps Bernardo Castaneda MD 10/19/2018 300mg mouth two times a Capsules day Freestyle Jean 14 use at least 4 1units E11.65 Bernardo Castaneda MD 01/25/2018 Day/Lomira/Flash times daily with Monitoring System sensor Device Freestyle Jean [address] place one sensor 2units E11.65 Bernardo Castaneda MD 2017 Day/Sensor/Flash every 14 days, dx Monitoring System E10.9 [facility] Nystatin please apply to Unknown the affected area 924432Qgta/GM Cream as needed for rash Nystatin apply twice daily Unknown until rash clears 614402Nsko/GM Powder Cimetidine twice daily Unknown 200mg Tablets Novofine use every day or Unknown 32G X 6 mm as directed [facility] Basaglar Kwikpen 40 units in am Unknown 100Unit/ML Solution Pen-Inject Insulin use daily as Unknown Syringe/Needle directed 0.3ML/31G X 5/16" 31G X 5/16" 0.3 ML [facility] True Metrix Meter 1 unit Unknown Device Sertraline HCL once daily Unknown 50mg Tablets Formula Once daily Unknown Tablets Colace 1 capsule twice Unknown 100mg Capsules daily History Medications Glipizide XL take 5mg daily 30tabs E11.649 Bernardo Castaneda MD 10/19/2018 - 5mg in the morning 01/19/2019 Tablets ER 24HR Pioglitazone HCL take 15mg once 30tabs E11.649 Bernardo Castaneda MD 10/19/2018 - 15mg daily 01/19/2019 Tablets Immunizations Description No Information Available Vital Signs Date Vital Result Comment 01/19/2019 10:51am Height 65 inches 5'5" Weight 236.00 lb w/o shoes Heart Rate 90 /min BP Systolic Sitting 136 mmHg BP Diastolic Sitting 78 mmHg BMI (Body Mass Index) 39.3 kg/m2 10/19/2018 11:57am Height 65 inches 5'5" Weight 232.00 lb w/ shoes Heart Rate 83 /min BP Systolic Sitting 137 mmHg BP Diastolic Sitting 78 mmHg BMI (Body Mass Index) 38.6 kg/m2 Results Test Acquired Date Facility Test Result H/L Range Note Laboratory test 10/19/2018 [facility] Hemoglobin A1c 6.9 % High 4.0-5.[address] ([facility]) [place] [address] [phone] C-Peptide 0.9 ng/mL Abnormal 1.1 - 4.4 2 Glucose 78 mg/dL Normal 70-100 Vitamin D Total 25(Oh) 24.7 ng/mL Normal 20-50 3 1 Therapeutic target for the treatment of diabetes mellitus patients is <7% HBA1C, and in selective patients <6.0%. Please refer to [place] [employer] diabetic care guidelines for further information. 2 Test Performed by: [facility] [address] [place] [address] 3 Total 25-Hydroxyvitamin D2 and D3 (25-OH-VitD) <10 ng/mL (severe deficiency) 10-19 ng/mL (mild to moderate deficiency) 20-50 ng/mL (optimum levels) 51-80 ng/mL (increased risk of hypercalciuria) >80 ng/mL (toxicity possible) Procedures Description No Information Available Medical Devices Description No Information Available Encounters Type Date Location Provider Dx Diagnosis Office Visit 10/19/2018 [facility] and Bernardo Castaneda MD E11.649 Type 2 diabetes 11:40a Endocrinology [facility] mellitus with hypoglycemia without coma Z79.4 longterm (current) use of insulin Assessments Date Code Description Provider 01/19/2019 E10.65 Type 1 diabetes mellitus with hyperglycemia Bernardo Castaneda MD 01/19/2019 Z79.4 terminal carman (current) use of insulin Bernardo Castaneda MD 10/19/2018 E11.649 Type 2 diabetes mellitus with hypoglycemia without Bernardo Castaneda MD coma 10/19/2018 Z79.4 terminal carman (current) use of insulin Bernardo Castaneda MD Plan of Treatment Future Appointment(s):04/21/2019 2:40 pm - Bernardo Castaneda MD at [facility] and [facility]01/19/2019 - Bernardo Castaneda MDE10.65 Type 1 diabetes mellitus with hyperglycemiaNew Medication:Admelog Solostar 100 Unit/ML - 10 units with meals or as directed, mdd 50 unitsFollow up:3 monthsInstructions:1. Continue Basaglar 38 units once daily in the morning. 2. Restart Admelog 10 units with meals, plus sliding scale, as follows: - 2 units if glucose is more than 200 - 3 units if glucose is more than 300 - 4 units if glucose is more than 400 3. Stop glipizide. 4. Stop pioglitazone. 5. Jean prescription has been sent to [facility]. 6. Return in 3 months for a follow-up visit.Z79.4 longterm (current) use of insulin Functional Status Description No Information Available Mental Status Description No Information Available Referrals Description No Information Available
--- NOTE | 2019-02-08 21:40 | ED ---
Head Injury - HPI Summary HPI Summary: Patient complains of an injury with O2 tank falling on the back of her head from the top of the joint or with associated symptoms are nausea, dizziness, blurry vision and headache. Event occurred at 2:30 PM today. Patient is not taking any medications for pain. Denies LOC, imbalance, amnesia. Denies any other pain, injury symptoms. Medical history is DM, HDL. - History Of Current Complaint Chief Complaint: EDHeadInjury Stated Complaint: HEAD INJURY PER PT Time Seen by Provider: 02/08/19 21:32 Hx Obtained From: Patient Hx Last Menstrual Period: 7 years ago Mechanism Of Injury: Blunt Trauma Onset/Duration: Started Hours Ago Onset of Pain: Immediate Severity Currently: Severe Pain Intensity: 98 Pain Scale Used: 0-10 Numeric Location of Head Injury: Occipital Location: Discrete At: Character: Dull, Throbbing, Pressure Aggravating Factor(s): Movement Associated Signs And Symptoms: Nausea - Allergies/Home Medications Allergies/Adverse Reactions: Allergies Allergy/AdvReac Type Severity Reaction Status Date / Time aspirin Allergy Severe See Comment Verified 02/08/19 17:51 Iodinated Contrast Media Allergy Severe Swelling Verified 02/08/19 17:51 [Iodinated Contrast- Oral Of and IV Dye] Face,Lips,& Throat povidone-iodine Allergy Severe Swelling Verified 02/08/19 17:51 [From Betadine] Of Face,Lips,& Throat shellfish derived Allergy Severe Swelling Verified 02/08/19 17:51 Of Face,Lips,& Throat soap [From Betadine] Allergy Severe Swelling Verified 02/08/19 17:51 Of Face,Lips,& Throat PMH/Surg Hx/FS Hx/Imm Hx Endocrine/Hematology History: Reports: Hx Diabetes - type 2, insulin, Hx Anemia - HX OF WHEN , Other Endocrine/Hematological Disorders - obesity - s/p gastric bypass surgery Cardiovascular History: Reports: Hx Hypercholesterolemia - statin Denies: Hx Myocardial Infarction - Present in EMR PMHx, but pt denies and report negative stress test. Respiratory History: Reports: Hx Chronic Obstructive Pulmonary Disease (COPD), Hx Sleep Apnea GI History: Reports: Hx Gastroesophageal Reflux Disease, Other GI Disorders - S/ P gastric bypass Musculoskeletal History: Reports: Hx Arthritis - BACK, Hx Back Problems Sensory History: Reports: Hx Cataracts - BILAT, Hx Contacts or Glasses - READING , Other Sensory Impairments - pressure behind right eye Denies: Hx Hearing Aid, Hx Hearing Problem Opthamlomology History: Reports: Hx Cataracts - BILAT, Hx Contacts or Glasses - READING, Other Sensory Impairments - pressure behind right eye Psychiatric History: Reports: Hx Anxiety, Hx Depression - Surgical History Surgery Procedure, Year, and Place: cholecystectomy 2008 [facility]. appendectomy [facility] y 07/2014 [facility]. LEFT EYE SCAR TISSUE REMOVAL 04/22 [facility]. REPAIR RIGHT MACULAR HOLE 2012. gastric bypass Hx Anesthesia Reactions: No - Immunization History Date of Tetanus Vaccine: unsure Date of Influenza Vaccine: 2011 Infectious Disease History: No Infectious Disease History: Denies: Traveled Outside the [place] in Last 30 Days - Family History Known Family History: Positive: Diabetes Negative: Blood Disorder Family History: Renal Failure, CVA, thyroid dz. - Social History Alcohol Use: None Hx Substance Use: No Substance Use Type: Reports: None Hx Tobacco Use: Yes Smoking Status (MU): Former Smoker Type: Cigarettes Have You Smoked in the Last Year: No Review of Systems Constitutional: Negative Positive: Blurred Vision ENT: Negative Cardiovascular: Negative Respiratory: Negative Positive: Nausea Genitourinary: Negative Musculoskeletal: Negative Skin: Negative Positive: Headache Psychological: Normal All Other Systems Reviewed And Are Negative: Yes Physical Exam - Summary Physical Exam Summary: Swelling hematoma to posterior head. Full range of motion of neck and jaw. Neuro exam normal. No evidence of intraoral trauma. Patient moving all 4 extremities freely without any indication of pain. Triage Information Reviewed: Yes Vital Signs On Initial Exam: Initial Vitals Temp Pulse Resp BP Pulse Ox 98 F 84 16 165/82 99 02/08/19 17:47 02/08/19 17:47 02/08/19 17:47 02/08/19 17:47 02/08/19 17:47 Vital Signs Reviewed: Yes Appearance: Positive: Well-Appearing Skin: Positive: Warm Head/Face: Positive: Normal Head/Face Inspection Eyes: Positive: Normal ENT: Positive: Normal ENT inspection Dental: Negative: Dental Fracture @, Bleeding Neck: Positive: Supple Respiratory/Lung Sounds: Positive: Clear to Auscultation Cardiovascular: Positive: Normal Abdomen Description: Positive: Nontender Musculoskeletal: Positive: Normal Neurological: Positive: Normal Psychiatric: Positive: Normal AVPU Assessment: Alert - Luz Coma Scale Best Eye Response: 4 - Spontaneous Best Motor Response: 6 - Obeys Commands Best Verbal Response: 5 - Oriented Coma Scale Total: 15 Procedures - Sedation Patient Received Moderate/Deep Sedation with Procedure: No Diagnostics - Vital Signs Vital Signs Temp Pulse Resp BP Pulse Ox 02/08/19 20:39 97.9 F 86 18 106/75 96 02/08/19 17:47 98 F 84 16 165/82 99 - Laboratory Lab Statement: Any lab studies that have been ordered have been reviewed, and results considered in the medical decision making process. Head Injury Course/Dx Course Of Treatment: Patient complains of head injury with O2 tank falling on the back of her head from the top of the joint or with associated symptoms are nausea, dizziness, blurry vision, neck pain and headache. Event occurred at 2: 30 PM today. Patient is not taking any medications for pain. Denies LOC, imbalance, amnesia. Denies any other pain, injury symptoms. Medical history is DM, HDL. Neuro exam normal. CT brain negative. CT cervical spine negative. - Diagnoses Provider Diagnoses: Head injury, Concussion, Neck pain Discharge ED - Sign-Out/Discharge Documenting (check all that apply): Patient Departure - Discharge Plan Condition: Stable Disposition: HOME Patient Education Materials: Concussion (ED), Acute Neck Pain (ED) Forms: *Work Release Referrals: Stephanie Umana AUCTION ASSISTANT [Primary Care Provider] - Additional Instructions: Take Tylenol as directed for headache pain if necessary. Concussion symptoms will come and go over the next couple weeks, may be triggered by exertion, activity, bright lights, phone or TV. Avoid risk of repeat head injury until cleared by primary care. Return to the ED for any new or worsening symptoms. - Billing Disposition and Condition Condition: STABLE Disposition: Home
[2019-02-08] MEDS ORDERED: Acetaminophen TAB* 325 MG PO ONE (22:29)
[2019-02-08 23:52] VITALS: BP 113/72
== END 2019-02-08 23:39 | disposition home or self-care (01) ==
LOC: ED 17:33
DX: S06.0X0A Concussion without loss of consciousness, initial encounter (principal); M54.2 Cervicalgia; R11.0 Nausea; W20.8XXA Other cause of strike by thrown, projected or falling object, initial encounter; Y92.9 Unspecified place or not applicable; E11.8 Type 2 diabetes mellitus with unspecified complications; Z79.4 Long term (current) use of insulin; E78.00 Pure hypercholesterolemia, unspecified; Z88.6 Allergy status to analgesic agent; Z91.041 Radiographic dye allergy status; Z91.013 Allergy to seafood; Z87.891 Personal history of nicotine dependence
CPT/HCPCS: 70450; 72125; 99282

== ENCOUNTER 2019-02-25 11:57 | Emergency (ER) | payer OTHER ==
--- NOTE | 2019-02-25 12:09 | ED ---
HPI Chest Pain - HPI Summary HPI Summary: This patient is a 43 year old female presenting to [facility] with a chief complaint of chest pain and blurred vision since 2 hours ago. She states a Hx of HTN, HLD , and Diabetes. She states she was standing at work when she started to notice blurred vision. She reports mild headache. She reports nausea/vomiting since onset. She states she has had abdominal pain for the past 3 days. She states she has surgical Hx of cholecystectomy, appendectomy, bariatric surgery. - History of Current Complaint Time Seen by Provider: 02/25/19 12:03 Hx Obtained From: Patient Hx Last Menstrual Period: 7 years ago Onset/Duration: Started Hours Ago - Allergy/Home Medications Allergies/Adverse Reactions: Allergies Allergy/AdvReac Type Severity Reaction Status Date / Time aspirin Allergy Severe See Comment Verified 02/25/19 12:19 Iodinated Contrast Media Allergy Severe Swelling Verified 02/25/19 12:19 [Iodinated Contrast- Oral Of and IV Dye] Face,Lips,& Throat povidone-iodine Allergy Severe Swelling Verified 02/25/19 12:19 [From Betadine] Of Face,Lips,& Throat shellfish derived Allergy Severe Swelling Verified 02/25/19 12:19 Of Face,Lips,& Throat soap [From Betadine] Allergy Severe Swelling Verified 02/25/19 12:19 Of Face,Lips,& Throat PMH/Surg Hx/FS Hx/Imm Hx Endocrine/Hematology History: Reports: Hx Diabetes - type 2, insulin, Hx Anemia - HX OF WHEN , Other Endocrine/Hematological Disorders - obesity - s/p gastric bypass surgery Cardiovascular History: Reports: Hx Hypercholesterolemia - statin Denies: Hx Myocardial Infarction - Present in EMR PMHx, but pt denies and report negative stress test. Respiratory History: Reports: Hx Chronic Obstructive Pulmonary Disease (COPD), Hx Sleep Apnea GI History: Reports: Hx Gastroesophageal Reflux Disease, Other GI Disorders - S/ P gastric bypass Musculoskeletal History: Reports: Hx Arthritis - BACK, Hx Back Problems Sensory History: Reports: Hx Cataracts - BILAT, Hx Contacts or Glasses - READING , Other Sensory Impairments - pressure behind right eye Denies: Hx Hearing Aid, Hx Hearing Problem Opthamlomology History: Reports: Hx Cataracts - BILAT, Hx Contacts or Glasses - READING, Other Sensory Impairments - pressure behind right eye Psychiatric History: Reports: Hx Anxiety, Hx Depression - Surgical History Surgery Procedure, Year, and Place: cholecystectomy 2008 [facility]. appendectomy [facility]2014 [facility] LEFT EYE SCAR TISSUE REMOVAL 04/22 [facility] REPAIR RIGHT MACULAR HOLE 2012. gastric bypass Hx Anesthesia Reactions: No - Immunization History Date of Tetanus Vaccine: unsure Date of Influenza Vaccine: 2011 - Family History Known Family History: Positive: Diabetes Negative: Blood Disorder Family History: Renal Failure, CVA, thyroid dz. - Social History Alcohol Use: None Hx Substance Use: No Substance Use Type: Reports: None Hx Tobacco Use: Yes Smoking Status (MU): Former Smoker Type: Cigarettes Have You Smoked in the Last Year: No Review of Systems Positive: Blurred Vision Positive: Chest Pain Positive: Abdominal Pain, Vomiting, Nausea Positive: Headache All Other Systems Reviewed And Are Negative: Yes Physical Exam - Summary Physical Exam Summary: Constitutional: Well-developed, Well-nourished, Alert. (-) Distressed Skin: Warm, Dry HENT: Normocephalic; Atraumatic Eyes: Conjunctiva normal Neck: Musculoskeletal ROM normal neck. (-) JVD, (-) Stridor, (-) Tracheal deviation Cardio: Rhythm regular, rate normal, Heart sounds normal; Intact distal pulses; The pedal pulses are 2+ and symmetric. Radial pulses are 2+ and symmetric. (-) Murmur Pulmonary/Chest wall: Effort normal. (-) Respiratory distress, (-) Wheezes, (-) Rales Abd: Soft, (-) tenderness, (-) Distension, (-) Guarding, (-) Rebound Musculoskeletal: (-) Edema Lymph: (-) Cervical adenopathy Neuro: Alert, Oriented x3 Psych: Mood and affect Normal Triage Information Reviewed: Yes Vital Signs Reviewed: Yes Procedures - Sedation Patient Received Moderate/Deep Sedation with Procedure: No Diagnostics - Laboratory Result Diagrams: 02/25/19 12:07 02/25/19 12:07 Lab Statement: Any lab studies that have been ordered have been reviewed, and results considered in the medical decision making process. - CT Abd/Pel CT Interpretation Completed By: Radiologist Summary of CT Findings: Postsurgical change. Fat-containing umbilical hernia. No acute noncontrast CT pathology of the visualized abdomen or pelvis. ED Provider has reviweed this report. - EKG 1201 Cardiac Rate: NL - 75 BPM EKG Rhythm: Sinus Rhythm Summary of EKG Findings: No STEMI. Dr. Pompa has reviewed and intepreted this EKG. Chest Pain Course/Dx - Course Course Of Treatment: This patient is a 43 year old female presenting to [facility] with a chief complaint of chest pain and blurred vision since [address] Abd /Pel reveals Postsurgical change.Fat-containing umbilical hernia. No acute noncontrast CT pathology of the visualized abdomen or pelvis. Labs reveal Hgb 11.2 L, Hct 34 L, MCV 77 L, MCH 26 L, glucose 192 H. She was administered Xaalox, Lidocaine, and Zofran. A plan for discharge was discussed with the patient and she was agreeable with this plan. - Diagnoses Provider Diagnoses: Abdominal pain Discharge ED - Sign-Out/Discharge Documenting (check all that apply): Patient Departure - Discharge - Discharge Plan Condition: Stable Disposition: HOME Patient Education Materials: Abdominal Pain (ED) Referrals: Stephanie Umana, CHIEF BUSINESS OFFICER [Primary Care Provider] - 3 Days Additional Instructions: Return to ED with new or worsening symptoms. - Attestation Statements Document Initiated by Scribe: Yes Documenting Scribe: Fei Lemos Provider For Whom Scribe is Documenting (Include Credential): Buck Pompa DO Scribe Attestation: Fei Rasheed scribed for Buck Pompa DO on 02/25/19 at 1455. Status of Scribe Document: Ready
[2019-02-25] MEDS ORDERED: NS 0.9% 1000 ML** 1,000 ML IV ONE ×2 (12:17→13:21)
[2019-02-25] MEDS ORDERED: Ondansetron INJ* 2 MG/ML VIAL IV ONE (12:17)
[2019-02-25 12:21] LABS: ABS Eosinophils 0.1 10^3/ul (0-0.6); ABS Lymphocytes 1.6 10^3/ul (1.0-4.8); ABS Monocytes 0.5 10^3/ul (0-0.8); ABS Neutrophils 3.5 10^3/ul (1.5-7.7); Eosinophil % 1.9 %; Hematocrit 34 % (35-47); Hemoglobin 11.2 g/dL (12.0-16.0); Lymphocyte % 27.2 %; Mean Corpuscular HGB Conc 33 g/dL (31-36); Mean Corpuscular Hemoglobin 26 pg (27-31); Mean Corpuscular Volume 77 fL (80-97); Mean Platelet Volume 8.3 fL (7.4-10.4); Platelet Count 238 10^3/uL (150-450); Red Blood Count 4.37 10^6 /uL (3.70-4.87); Red Cell Distribution Width 14 % (10-15); White Blood Count 5.7 10^3/uL (3.5-10.8)
[2019-02-25 12:25] LABS: INR 1.05 (0.82-1.09)
[2019-02-25 12:42] LABS: ALT 24 U/L (7-52); AST 23 U/L (13-39); Albumin 4.1 g/dL (3.2-5.2); Albumin/Globulin Ratio 1.4 (1-3); Alkaline Phosphatase 53 U/L (34-104); Anion Gap 5 mmol/L (2-11); BUN/Creatinine Ratio 16.1 (8-20); Blood Urea Nitrogen 14 mg/dL (6-24); CO2 Carbon Dioxide 29 mmol/L (22-32); Calcium 8.9 mg/dL (8.6-10.3); Chloride 105 mmol/L (101-111); EGFR African American 86.4 (>60); EGFR Non-African American 71.4 (>60); Globulin 2.9 g/dL (2-4); Glucose 192 mg/dL (70-100); Potassium 4.2 mmol/L (3.5-5.0); Sodium 139 mmol/L (135-145)
[2019-02-25] MEDS ORDERED: Al Hydrox/Mg Hydrox/Simet LIQ* 30 ML UDC PO ONE (13:21)
[2019-02-25] MEDS ORDERED: Lidocaine 2% VISCOUS* 15 ML UDC PO ONE (13:22)
[2019-02-25 14:11] LABS: HCG Pregnancy < 0.60 mIU/mL
[2019-02-25 15:47] VITALS: BP 132/79
== END 2019-02-25 15:16 | disposition home or self-care (01) ==
LOC: ED 11:57
DX: R10.13 Epigastric pain (principal); K42.9 Umbilical hernia without obstruction or gangrene; H53.8 Other visual disturbances; R51 Headache; R11.2 Nausea with vomiting, unspecified; E11.9 Type 2 diabetes mellitus without complications; Z79.4 Long term (current) use of insulin; E78.00 Pure hypercholesterolemia, unspecified; J44.9 Chronic obstructive pulmonary disease, unspecified; Z88.6 Allergy status to analgesic agent; Z91.041 Radiographic dye allergy status; Z91.013 Allergy to seafood; Z91.048 Other nonmedicinal substance allergy status; Z98.84 Bariatric surgery status; Z90.49 Acquired absence of other specified parts of digestive tract; Z90.89 Acquired absence of other organs; Z87.891 Personal history of nicotine dependence
CPT/HCPCS: 36415; 74176; 80053; 83690; 84484; 84702; 85025; 85610; 93005; 96361; 96374; 99283; A9270-GY; J2405

== ENCOUNTER 2019-05-01 13:25 | Emergency (ER) | payer OTHER ==
[2019-05-01 13:30] VITALS: BP 155/91
[2019-05-01] MEDS ORDERED: Fluorescein Sodium TOPICAL* 1 MG TEST STRIP OPHTHALMIC ONE (13:52)
[2019-05-01] MEDS ORDERED: Tetracaine 0.5% OPTH.SOL 4 ML* 1 DROP BTL RIGHT EYE ONE (13:53)
--- NOTE | 2019-05-01 14:22 | ED ---
Throat Pain/Nasal Congestion - HPI Summary HPI Summary: This patient is a 43-year-old female with a history of cataracts and diabetes presents to the ED with concern for right eye foreign body. Patient states 3 days ago when she was working at [employer], she feels she may have gotten something in her eye. She states it did not hurt at the time, however her later that evening. Over the past 3 days she is feeling a very slight discomfort to the right portion of the right thigh. Not worse with blinking. She has been using her at home eyedrops without much relief. She states the pain is a burning sensation, worse after placing the eyedrops and better with closing the eye. - History of Current Complaint Chief Complaint: EDEyeProblem Time Seen by Provider: 05/01/19 13:36 Hx Obtained From: Patient Onset/Duration: Sudden Onset Severity: Moderate Associated Signs And Symptoms: Positive: Negative - Epiglottits Risk Factors Epiglottis Risk Factors: Negative - Allergies/Home Medications Allergies/Adverse Reactions: Allergies Allergy/AdvReac Type Severity Reaction Status Date / Time aspirin Allergy Severe See Comment Verified 05/01/19 13:31 Iodinated Contrast Media Allergy Severe Swelling Verified 05/01/19 13:31 [Iodinated Contrast- Oral Of and IV Dye] Face,Lips,& Throat povidone-iodine Allergy Severe Swelling Verified 05/01/19 13:31 [From Betadine] Of Face,Lips,& Throat shellfish derived Allergy Severe Swelling Verified 05/01/19 13:31 Of Face,Lips,& Throat soap [From Betadine] Allergy Severe Swelling Verified 05/01/19 13:31 Of Face,Lips,& Throat Home Medications: Home Medications Docusate CAP* [Colace Cap*] 100 mg PO BID 06/18/17 [History Confirmed 05/27/18] Insulin Glargine,Hum.rec.anlog [Basaglar Kwikpen] 40 unit SUBCUT IN AM AND AT BEDTIME 06/18/17 [History Confirmed 05/27/18] Insulin LISPRO* [HumaLOG*] 0 units SUBCUT DIRECTED 06/18/17 [History Confirmed 05/27/18] Pnv No.95/Ferrous Fum/Folic AC [ Vitamin & Minera 28-0.8 mg] 1 tab PO DAILY 06/18/17 [History Confirmed 05/27/18] Sertraline* [Zoloft*] 50 mg PO DAILY 06/18/17 [History Confirmed 05/27/18] Cimetidine [Tagamet Hb] 200 mg PO BID 03/21/18 [History Confirmed 05/27/18] Hydroxyprogesterone Caproat/Pf [[place] 275 mg/1.1 ml Autoinjct] 275 mg SQ WEEKLY 03/21/18 [History Confirmed 05/27/18] Iron 1 tab PO DAILY 05/18/18 [History Confirmed 05/27/18] Polymyx/Trimethoprim OPTH* [Polytrim OPHTH*] 1 drop RIGHT EYE Q3H #1 btl MDD 6 05/01/19 [Rx] PMH/Surg Hx/FS Hx/Imm Hx Previously Healthy: Yes Endocrine/Hematology History: Reports: Hx Diabetes - type 2, insulin, Hx Anemia - HX OF WHEN , Other Endocrine/Hematological Disorders - obesity - s/p gastric bypass surgery Cardiovascular History: Reports: Hx Hypercholesterolemia - statin Denies: Hx Myocardial Infarction - Present in EMR PMHx, but pt denies and report negative stress test. Respiratory History: Reports: Hx Chronic Obstructive Pulmonary Disease (COPD), Hx Sleep Apnea GI History: Reports: Hx Gastroesophageal Reflux Disease, Other GI Disorders - S/ P gastric bypass Musculoskeletal History: Reports: Hx Arthritis - BACK, Hx Back Problems Sensory History: Reports: Hx Cataracts - BILAT, Hx Contacts or Glasses - READING , Other Sensory Impairments - pressure behind right eye Denies: Hx Hearing Aid, Hx Hearing Problem Opthamlomology History: Reports: Hx Cataracts - BILAT, Hx Contacts or Glasses - READING, Other Sensory Impairments - pressure behind right eye Psychiatric History: Reports: Hx Anxiety, Hx Depression - Surgical History Surgery Procedure, Year, and Place[place] [facility] [place] [facility] [place] [place] [facility]. LEFT EYE SCAR TISSUE REMOVAL 04/22 [facility]. REPAIR RIGHT MACULAR HOLE 2012. gastric bypass Hx Anesthesia Reactions: No - Immunization History Date of Tetanus Vaccine: unsure Date of Influenza Vaccine: 2011 Infectious Disease History: No Infectious Disease History: Denies: Traveled Outside the [place] in Last 30 Days - Family History Known Family History: Positive: Diabetes Negative: Blood Disorder Family History: Renal Failure, CVA, thyroid dz. - Social History Occupation: Employed Full-time Lives: With Family Alcohol Use: None Hx Substance Use: No Substance Use Type: Reports: None Hx Tobacco Use: Yes Smoking Status (MU): Former Smoker Type: Cigarettes Have You Smoked in the Last Year: No Review of Systems Negative: Fever, Chills, Fatigue, Skin Diaphoresis Positive: Other - right sided corneal eye pain. Negative: Photophobia, Blurred Vision, Diplopia, Drainage, Erythema Negative: Palpitations, Chest Pain Gastrointestinal: Negative Musculoskeletal: Negative Skin: Negative All Other Systems Reviewed And Are Negative: Yes Physical Exam Triage Information Reviewed: Yes Vital Signs On Initial Exam: Initial Vitals Temp Pulse Resp BP Pulse Ox 97.4 F 85 19 155/91 98 05/01/19 13:28 05/01/19 13:28 05/01/19 13:28 05/01/19 13:28 05/01/19 13:28 Vital Signs Reviewed: Yes Appearance: Positive: Well-Appearing, Well-Nourished Skin: Positive: Warm, Skin Color Reflects Adequate Perfusion Head/Face: Positive: Normal Head/Face Inspection Eyes: Negative: EOMI, DENNIS, Conjunctiva Clear, Conjunctiva Inflammed, Discharge Neck: Positive: Supple, No Lymphadenopathy Respiratory/Lung Sounds: Positive: Clear to Auscultation, Breath Sounds Present Cardiovascular: Positive: RRR, Pulses are Symmetrical in both Upper and Lower Extremities Musculoskeletal: Positive: Normal, Strength/ROM Intact Neurological: Positive: Speech Normal Psychiatric: Positive: Affect/Mood Appropriate Procedures - Sedation Patient Received Moderate/Deep Sedation with Procedure: No Diagnostics - Vital Signs Vital Signs Temp Pulse Resp BP Pulse Ox 05/01/19 14:16 97.4 F 85 19 155/91 98 05/01/19 13:28 97.4 F 85 19 155/91 98 - Laboratory Lab Statement: Any lab studies that have been ordered have been reviewed, and results considered in the medical decision making process. EENT Course/Dx - Course Course Of Treatment: Patient evaluated for conjunctivitis vs FB vs abrasion vs. keratitis vs ocular trauma or periocular trauma to the R eye. She denies sunlight knutson, recent illness or sick contacts. He feels there is a FB in the eye. After scanning the eye with fluorescein uptake using tetracaine analgesic , the upper and lower lids retracted to allow for assessment of FB under the eyelids. No obvious perforation with teardrop pupil, vitreous extrusion, or protruding intraocular foreign body. No orbital compartment syndrome, hyphema, subconjunctival hemorrhage, evidence of increased intraorbital pressure or evidence of abrasions. Patient is made aware that provider is unable to see a FB or abrasions, however a small dot to the R of the pupil which positive on uptake. No evidence of abrasion otherwise. Will treat for possible FB with abrasion with polymyxin-trimethoprim abx drops and pain management. Patient is encouraged to follow up with ophthalmology [place] if symptoms persist. Patient agrees to plan and is discharged to home. - Differential Diagnoses Differential Diagnoses: Other - conjunctivitis, corneal abrasion - Diagnoses Provider Diagnoses: Acute right eye pain Discharge ED - Sign-Out/Discharge Documenting (check all that apply): Patient Departure - Discharge Plan Condition: Stable Disposition: HOME Prescriptions: Polymyx/Trimethoprim OPTH* [Polytrim OPHTH*] 1 drop RIGHT EYE Q3H #1 btl MDD 6 Patient Education Materials: Corneal Abrasion (ED) Referrals: Elvis Olivarez MD [Medical Doctor] - Stephanie Umana, TROUBLE SHOOTER [Primary Care Provider] - Additional Instructions: Instill 1 drop in affected eye(s) every 3 hours (maximum: 6 doses per day) for 7 days Please follow up with ophthalmology in 1-2 days If symptoms worsen - return to the ED Continue with your eye drops for dryness - Billing Disposition and Condition Condition: STABLE Disposition: Home - Attestation Statements Provider Attestation: I was available for consult. This patient was seen by the [place]. The patient was not presented to, seen by, or examined by me. Colin Kimball MD
== END 2019-05-01 14:16 | disposition home or self-care (01) ==
LOC: ED 13:25
DX: H57.11 Ocular pain, right eye (principal); Z87.891 Personal history of nicotine dependence; E11.9 Type 2 diabetes mellitus without complications; Z79.4 Long term (current) use of insulin; E78.00 Pure hypercholesterolemia, unspecified; Z98.84 Bariatric surgery status; J44.9 Chronic obstructive pulmonary disease, unspecified; K21.9 Gastro-esophageal reflux disease without esophagitis; F41.9 Anxiety disorder, unspecified; F32.9 Major depressive disorder, single episode, unspecified; Z79.899 Other long term (current) drug therapy
CPT/HCPCS: 99282; A9270-GY